=== PATIENT | female | born 1960 | race Caucasian/White ===

== ENCOUNTER 2019-06-25 10:16 | Outpatient (CLI) | payer MEDICARE, MEDICAID, SELFPAY ==
--- NOTE | ~2019-06-25 | XR_ITS ---
XR chest 2V DATE: 06/25/2019 10:52 INDICATION: Shortness of breath. COPD. TECHNIQUE: PA and lateral views COMPARISON: 07/09/2018 2 view chest FINDINGS: There is cardiomegaly. Aortic calcification. Right sided pacemaker with defibrillator/pac emaker lead overlying right ventricular apex. There is patchy consolidation in the left mid and lower lung patterson, new since 07/09/2018. There is new mild left pleural effusion. The remaining lung patterson are clear. No right pleural effusion. No pulmonary vascular congestion or p neumothorax. IMPRESSION: New patchy consolidation in the left mid and lower lung, small left pleural effusion Cardiomegaly Right defibrillator/pacemaker device with lead in right ventricular apex Reviewed, dictated and finalized at location B.
[2019-06-25 10:45] LABS: Basophils Percent Auto 0.4 % (0.2-1.2); Eosinophils Percent Auto 0.1 % (0-4.4); Hematocrit 46.6 % (37.0-47.0); Immature Granulocyte Absolute 0.03 K/mm3 (0.00-0.031); Immature Granulocyte Percent A 0.4 % (0-0.5); Lymphocytes Absolute Auto 2.91 K/mm3 (0.9-3.2); Lymphocytes Percent Auto 34.4 % (18.3-44.2); Mean Corpuscular HGB Conc 32.2 g/dl (32-36); Mean Corpuscular Hemoglobin 30.7 pg (26-34); Mean Corpuscular Volume 95.5 fl (80-100); Mean Platelet Volume 8.5 fl (7.4-10.4); Monocytes Absolute Auto 0.6 K/mm3 (0.1-0.6); Monocytes Percent Auto 6.7 % (2.6-8.5); Neutrophils Absolute Auto 4.9 K/mm3 (1.3-6.7); Nucleated Red Blood Cells Perc 0.2 % (0.0-0.2); Platelet Count Result 378 k/mm3 (150-375); Red Blood Count 4.88 M/mm3 (4.2-5.4); Red Cell Distribution Width 14.3 % (11.5-14.5); White Blood Count 8.5 K/mm3 (4.5-10.0)
[2019-06-25 11:08] LABS: NT Pro B Type Natriuretic Pept 20800 PG/ML (5-100)
== END 2019-06-25 10:17 | disposition home or self-care (01) ==
LOC: ANHLAB 10:27
PROVIDERS: PCP Internal Medicine; Visit Provider Nurse Practitioner Family
DX: R06.02 Shortness of breath (principal); R05 Cough; R60.0 Localized edema; J06.9 Acute upper respiratory infection, unspecified; Z95.0 Presence of cardiac pacemaker
CPT/HCPCS: 36415; 71046; 83880; 85025

== ENCOUNTER 2019-08-04 12:59 | Outpatient (CLI) | payer MEDICARE, MEDICAID, SELFPAY ==
[2019-08-04 13:32] LABS: Blood Urea Nitrogen 13 mg/dL (7-17); Calcium 9.5 mg/dL (8.4-10.2); Carbon Dioxide 38 mmol/L (22-30); Chloride 99 mmol/L (98-107); Estimated Glomerular Filt Rate > 60; Glucose 84 mg/dL (65-105); Potassium 5.1 mmol/L (3.4-5.0); Sodium 136 mmol/L (137-145)
== END 2019-08-04 13:00 | disposition home or self-care (01) ==
LOC: ANHLAB 13:02
PROVIDERS: PCP Internal Medicine; Visit Provider Internal Medicine Cardiovascular Disease
DX: I25.5 Ischemic cardiomyopathy (principal)
CPT/HCPCS: 36415; 80048

== ENCOUNTER 2019-08-14 09:48 | Outpatient (CLI) | payer MEDICARE, MEDICAID, SELFPAY ==
[2019-08-14 10:32] LABS: Blood Urea Nitrogen 16 mg/dL (7-17); Carbon Dioxide 34 mmol/L (22-30); Chloride 98 mmol/L (98-107); Estimated Glomerular Filt Rate > 60; Glucose 123 mg/dL (65-105); Potassium 3.7 mmol/L (3.4-5.0); Sodium 135 mmol/L (137-145)
== END 2019-08-14 09:49 | disposition home or self-care (01) ==
LOC: ANHLAB 09:51
PROVIDERS: PCP Internal Medicine; Visit Provider Internal Medicine Cardiovascular Disease
DX: I25.5 Ischemic cardiomyopathy (principal); I50.22 Chronic systolic (congestive) heart failure
CPT/HCPCS: 36415; 80048

== ENCOUNTER 2019-09-15 15:16 | Outpatient (CLI) | payer MEDICARE, MEDICAID, SELFPAY ==
[2019-09-15 15:59] LABS: Blood Urea Nitrogen 17 mg/dL (7-17); Calcium 10.1 mg/dL (8.4-10.2); Carbon Dioxide 37 mmol/L (22-30); Chloride 85 mmol/L (98-107); Estimated Glomerular Filt Rate > 60; Glucose 100 mg/dL (65-105); Potassium 3.3 mmol/L (3.4-5.0); Sodium 128 mmol/L (137-145)
== END 2019-09-15 15:17 | disposition home or self-care (01) ==
PROVIDERS: PCP Internal Medicine; Visit Provider Internal Medicine Cardiovascular Disease
DX: I50.22 Chronic systolic (congestive) heart failure (principal); I42.9 Cardiomyopathy, unspecified; I25.10 Atherosclerotic heart disease of native coronary artery without angina pectoris
CPT/HCPCS: 36415; 80048

== ENCOUNTER 2019-09-24 09:59 | Inpatient (IN) | payer MEDICARE, MEDICAID, SELFPAY ==
[2019-09-24] VITALS (30 sets, daily range): BP systolic 85–133; BP diastolic 54–110; PULSE 0–76; RESP 14–43; TEMP 36–36.7; O2SAT 82–98; BMI 25.4
--- NOTE | ~2019-09-24 | US_ITS ---
EXAMINATION: US right upper quadrant DATE: 09/25/2019 09:30 INDICATION: Elevated liver function tests TECHNIQUE: Multiple grayscale and Doppler ultrasound images of the abdomen were obtained. COMPARISON: 12/19/2016 FINDINGS: The head, body, and tail of the pancreas are normal. The liver is normal with normal echoge nicity and echotexture. No surface nodularity. Normal hepatopetal flow in the main portal vein. The g allbladder is normal with no abnormal wall thickening, pericholecystic fluid or stones. The normal co mmon bile duct measures 2 mm. There was no sonographic James sign. IMPRESSION: 1. Normal sonographic study of the gallbladder. Reviewed, dictated and finalized at location A.
--- NOTE | ~2019-09-24 | CT_ITS ---
EXAMINATION: CT brain wo con INDICATION: Headache COMPARISON: Dizziness TECHNIQUE: Standard unenhanced head CT. The dose-length product (DLP) was 605.33 mGy-cm. The mA was a djusted according to patient size. Iterative reconstruction technique was employed. FINDINGS: There is no intracranial hemorrhage, acute infarction, or abnormal mass lesion. The ventric les are normal. There is no abnormal mass effect or midline shift. The rodriguez-white matter differentiat ion is normal. The basal cisterns are patent. The orbits are normal. There is mild mucosal thickening of the paranasal sinuses. IMPRESSION: 1. No acute intracranial abnormality. Reviewed, dictated and finalized at location A.
--- NOTE | ~2019-09-24 | XR_ITS ---
EXAMINATION: XR chest 1V INDICATION: Dizziness TECHNIQUE: AP view of the chest is obtained. COMPARISON: 06/25/2019 FINDINGS: Left upper lobe airspace opacity persists but is slightly improved. There is no pleural eff usion or pneumothorax. Stable cardiomegaly is noted. A single lead pacemaker of the right chest wall ends with its lead in expected position. IMPRESSION: 1. Persistent but improved left upper lobe airspace opacity. Follow-up with nonemergent CT of the [address] is recommended to evaluate for underlying mass. Reviewed, dictated and finalized at location A. IMPRESSION: 1. Persistent but improved left upper lobe airspace opacity. Follow-up with non emergent CT of the chest is recommended to evaluate for underlying mass.
--- NOTE | 2019-09-24 10:21 | ED.GENADULT ---
HPI - General Adult General Chief complaint: Recheck/Abnormal Lab/Rx Stated complaint: ORTHOSTATIC IN CARDIOLOGISTS OFFICE Time Seen by Provider: 09/24/19 10:02 Source: RN notes reviewed History of Present Illness HPI narrative: Patient presents emergency department from Dr. Malone's office for orthostatic hypotension. Patient states since the past 5 days she has been having persistent dizziness with syncopal episodes. States that she had gone to the office today for a pacemaker check and is been noted to be orthostatic in the office and sent to the ER for further evaluation. The patient does state that she had been having swelling in her legs recently and her Lasix has been increased approximately 2 weeks ago. She denies any fevers or chills chest pain shortness of breath abdominal pain or any other symptoms Related Data Home Medications Medication Instructions Recorded Confirmed aspirin 81 mg tablet,delayed 81 mg PO DAILY 06/20/19 06/24/19 release atorvastatin 40 mg tablet 40 mg PO DAILY 06/20/19 06/24/19 carvedilol 25 mg tablet 25 mg PO DAILY 06/20/19 06/24/19 furosemide 40 mg tablet 40 mg PO QAM 06/20/19 06/24/19 nitroglycerin 0.4 mg sublingual 0.4 mg SUBLINGUAL Q5M 06/20/19 06/24/19 tablet albuterol sulfate 90 mcg/actuation 1 puff INHALATION Q4H PRN 06/24/19 06/24/19 aerosol inhaler clopidogrel [Plavix] 75 mg PO DAILY 09/24/19 potassium chloride 10 meq PO DAILY 09/24/19 Allergies Allergy/AdvReac Type Severity Reaction Status Date / Time valsartan Allergy Unknown Unknown Verified 09/24/19 10:17 Review of Systems Review of Systems: Narrative: Gen.: Denies fevers or chills Eyes: Denies eye pain or visual change ENT: Denies congestion Respiratory: Denies shortness of breath or cough CV: Denies chest pain or palpitations, reports syncope GI: Denies abdominal pain nausea, emesis or diarrhea denies burning, urgency, frequency or hematuria Musculoskeletal: Denies back pain or muscle pain Neuro: Denies numbness, tingling, weakness or focal weakness, reports dizziness Skin: Denies rash Except as documented, all other systems reviewed and negative PMFSH Past Medical History Medical History Bronchitis Cardiomyopathy Congestive heart failure COPD (chronic obstructive pulmonary disease) Coronary artery disease Hypertension Lung nodule Lymphadenopathy Mediastinal (thymic) large B-cell lymphoma Rhinitis Sleep apnea Tobacco abuse Social History Social History Years smoked: 39 Smoking status: Current every day smoker Tobacco type: cigarettes Second hand tobacco smoke exposure: No Smoking end date: 03/09/19 Alcohol intake: never Exam Narrative: Exam Narrative: APPEARANCE: No acute distress, nontoxic, resting in bed EYES: EOMI, Marci HEENT: Normocephalic, atraumatic, OMM RESPIRATORY: No respiratory distress Clear to auscultation bilaterally with no rhonchi wheezing or rales. CARDIOVASCULAR: Regular rate and rhythm without murmurs rubs or gallops. ABDOMINAL: Soft, nontender, nondistended, no rebound or guarding MUSCULOSKELETAl: Moves all extremities. No clubbing, cyanosis or edema. NEURO: Awake and alert. Following commands, speech normal, no focal deficits SKIN:: Warm, dry. No rashes lesions or abrasions PSYCHIATRIC: Normal affect/mood, Course Course Emergency Course: Discussed with VOCATIONAL TRAINING INSTRUCTOR and Maycol Malone presentation work-up agrees with consult at this time Discussed Dr. Cooley presentation work-up. Agrees with admission at this time Discussed with patient and family results of workup and diagnosis. Discussed need for admission. Patient and family understand and agree to current treatment plan Vital Signs Vital signs: Vital Signs Pulse Rate 69 09/24/19 10:12 Respiratory Rate 16 09/24/19 10:12 Blood Pressure 124/80 09/24/19 10:12 Pulse Oximetry 94 09/24/19 10
--- NOTE | 2019-09-24 10:25 | ECG_ITS ---
Measurements Intervals [place] Rate: 69 P: 32 TX: 182 QRS: 134 QRSD: 137 T: 70 QT: 476 QTc: 513 Interpretive Statements ATRIAL SENSE- ELECTRONIC VENTRICULAR PACEMAKER NO FURTHER INTERPRETATION IS POSSIBLE ATYPICAL ECG Electronically Signed On 09-24-2019 14:28:25 CDT by Miguel A Alvarado D.O.
[2019-09-24] MEDS: SODIUM CHLORIDE 0.9% IV 1,000 ML 999 ML IV CONT (10:26)
[2019-09-24 10:32] LABS: Basophils Percent Auto 0.6 % (0.2-1.2); Eosinophils Percent Auto 0.3 % (0-4.4); Hematocrit 53.4 % (37.0-47.0); Hemoglobin 18.1 g/dL (12.0-15.0); Immature Granulocyte Absolute 0.02 K/mm3 (0.00-0.031); Immature Granulocyte Percent A 0.3 % (0-0.5); Lymphocytes Absolute Auto 2.28 K/mm3 (0.9-3.2); Mean Corpuscular HGB Conc 33.9 g/dl (32-36); Mean Corpuscular Hemoglobin 30.3 pg (26-34); Mean Corpuscular Volume 89.3 fl (80-100); Monocytes Absolute Auto 0.8 K/mm3 (0.1-0.6); Monocytes Percent Auto 12.6 % (2.6-8.5); Neutrophils Absolute Auto 3.2 K/mm3 (1.3-6.7); Neutrophils Percent Auto 50.2 % (45.5-73.1); Platelet Count Result 222 k/mm3 (150-375); Red Blood Count 5.98 M/mm3 (4.2-5.4); Red Cell Distribution Width 15.4 % (11.5-14.5); White Blood Count 6.3 K/mm3 (4.5-10.0)
[2019-09-24 10:42] LABS: INR 1.1; Partial Thromboplastin Time 25.8 SECONDS (22.3-36.8); Prothrombin Time 13.8 Seconds (11.1-14.7)
[2019-09-24 10:49] LABS: Alanine Aminotransferase 29 U/L (4-35); Albumin Level 4.4 g/dL (3.5-5.1); Alkaline Phosphatase 168 U/L (38-126); Aspartate Amino Transferase 58 U/L (14-36); Bilirubin,Total 1.7 mg/dL (0.2-1.3); Blood Urea Nitrogen 18 mg/dL (7-17); Calcium 9.9 mg/dL (8.4-10.2); Carbon Dioxide > 40 mmol/L (22-30); Chloride 81 mmol/L (98-107); Estimated CRCL calculation 74 ml/min; Estimated Glomerular Filt Rate > 60; Glucose 122 mg/dL (65-105); Potassium 2.4 mmol/L (3.4-5.0); Sodium 127 mmol/L (137-145)
[2019-09-24 10:59] LABS: Troponin I 0.157 ng/mL (0.000-0.034)
[2019-09-24 11:08] LABS: Magnesium 1.5 mg/dL (1.6-2.3)
[2019-09-24] MEDS: POTASSIUM CHLORIDE 20 MEQ TABLET 40 MEQ PO (11:36)
[2019-09-24] MEDS: ASPIRIN 81 MG CHEWABLE TABLET 324 MG PO (12:04)
[2019-09-24] MEDS: MAGNESIUM SULF 2 GM/WATER 50ML 2 GM/50 ML BAG IVPB (12:05)
--- NOTE | 2019-09-24 13:41 | ADMGEN ---
This patient, Mar Martinez, was admitted to IMU Room 200-01 at 1311 on 09/24/2019. Patient/family oriented to hospital policies and general routines including ID bracelet, bed and alarms, visiting hours, pain management, procedures, bathroom and other care routines, personal items, smoking policy, room service/diet, and visiting hours. Valuables list has been completed. Information on how to activate the Rapid Response Team has been discussed. Patient/Family are encouraged to report perceived risks to care and to ask questions if they do not understand what they are told or what they should do.
[2019-09-24 14:05] LABS: Troponin I 0.133 ng/mL (0.000-0.034)
--- NOTE | 2019-09-24 15:30 | PM.IMHP ---
H&P: HPI History of Present Illness Chief complaint: Recurrent syncopal episodes. Narrative: Mar Martinez is a 59-year-old female smoker with a complicated medical history to include coronary artery disease with history of [place], ischemic cardiomyopathy with severe left ventricular dysfunction and ejection fraction of 20% status post defibrillator insertion, peripheral vascular disease, hypertension, hyperlipidemia, and COPD who presented to the emergency department earlier this morning from Dr. Chaudhry's office for evaluation of recurrent syncopal episodes over the past 5 days. Several weeks ago she noticed an increase in shortness of breath, edema, and weight gain for which she had an increase in her diuretic therapy. She responded well to the diuretics and has near resolution of her lower extremity edema. Unfortunately over the past 5 days or so, she has began to feel dizzy with position changes, has had frequent instances of near-syncope, and reports at least 2 syncopal episodes this week. She was seen in Dr. Chaudhry's office today and had her defibrillator interrogated, which that was functioning normally. She was found to have orthostatic hypotension (systolic blood pressure dropped from 80 to 60) and was sent to the emergency department for admission. At the time my evaluation she is tired but has no other complaints. She was just up to the bedside commode and denies feeling dizzy with that. She also mentions having some nausea the last several days and decreased appetite, but no vomiting. Regarding the syncopal episodes, she denies any injury with those. She denies chest pain, pleuritic pain, and current shortness of breath. Review of Systems Review of Systems: Narrative: Twelve systems were reviewed with pertinent positives and negatives as per HPI. No fever, chills, or sweats. She denies headache. No chest pain or pleuritic pain. She denies orthopnea and PND. Except as documented, all other systems were reviewed and are negative. [facility] Past Medical History Medical History (Updated 09/24/19 @ 22:41 by Petrona Guerrero PA-C) Cerebrovascular accident No residual deficits. Chronic obstructive pulmonary disease Congestive heart failure Coronary artery disease With history of myocardial infarction. Patient has several stents in place. Hypertension Ischemic cardiomyopathy EF as low as 10 to 15% in September 2012. Status post defibrillator insertion. Lung nodule Left upper lobe opacity noted on imaging. Obstructive sleep apnea Untreated. Peripheral vascular disease With history of stents to the lower extremity. Right leg DVT Tobacco abuse Surgical History Surgical History (Updated 09/24/19 @ 16:05 by Petrona Guerrero PA-C) History of appendectomy History of carpal tunnel release History of coronary angioplasty with insertion of stent History of insertion of stent into coronary artery bypass graft History of tonsillectomy and adenoidectomy History of vascular surgery Right iliac stent. Presence of combination internal cardiac defibrillator (ICD) and pacemaker (~2012) Family History Family History Mother Diabetes mellitus, Onset Age: 66 Family history of coronary artery disease, Onset Age: 66 Family history of throat cancer, Onset Age: 66 Father Acute myocardial infarction, Onset Age: 48 Sibling Acute myocardial infarction, Onset Age: 39 Family history of chronic obstructive pulmonary disease Family history of malignant neoplasm of ovary Family history of seizure disorder Other Family history of cardiovascular disease Hypertension Social History Social History (Updated 09/24/19 @ 22:39 by Petrona Guerrero PA-C) Social History: Surrogate decision maker: Ernst Martinez, . Code status: Full code. Years smoked: 39 Smoking status: Current every day smoker Tobacco type: cigarettes Second hand tobacc
--- NOTE | 2019-09-24 15:40 | PM.CNCAR ---
Assessment and Plan Assessment and plan (1) Orthostatic hypotension: Code(s): I95.1 - Orthostatic hypotension Status: Acute Assessment and Plan: Secondary to intravascular volume depletion and diuretic therapy. Patient had more recently began to follow our recommendations with sodium restriction and in addition to escalating diuretic therapy resulted in orthostatic hypotension with near-syncope and syncope. Hold diuretic therapy. Push oral fluids. Will need to determine lower dose of diuretic therapy likely to be given as outpatient. Explained the delicate balance with regards to maintaining euvolemic status and avoiding symptomatic orthostatic hypotension/intravascular volume depletion. (2) Acute hypokalemia: Code(s): E87.6 - Hypokalemia Status: Acute Assessment and Plan: Secondary to diuretic therapy, decreased oral intake for the past week. Supplement to keep around 4.0. Continue telemetry. Check magnesium level. (3) Acute hyponatremia: Code(s): E87.1 - Hypo-osmolality and hyponatremia Status: Acute Assessment and Plan: Most likely secondary to diuretic therapy. Hold all diuretics at this time. (4) COPD with asthma: Code(s): J44.9 - Chronic obstructive pulmonary disease, unspecified Status: Acute Assessment and Plan: Stable. Per primary service. (5) Ischemic cardiomyopathy: Code(s): I25.5 - Ischemic cardiomyopathy Status: Acute Assessment and Plan: Compensated. Severe LV dysfunction. Has not been able to tolerate optimal medical therapy in the past due to hypotension. (6) Elevated troponin: Code(s): R79.89 - Other specified abnormal findings of blood chemistry Status: Acute Assessment and Plan: Most likely demand ischemia due to hypotension/intravascular volume depletion. No anginal symptoms. Most likely type 2 infarct not acute coronary syndrome. (7) CAD (coronary artery disease): Code(s): I25.10 - Atherosclerotic heart disease of [place] coronary artery without angina pectoris Status: Acute Assessment and Plan: No anginal symptoms. Continue dual antiplatelet therapy, statin. (8) ICD (implantable cardioverter-defibrillator) in place: Code(s): Z95.810 - Presence of automatic (implantable) cardiac defibrillator Status: Acute Assessment and Plan: Normal device function. No acute issues. History of Present Illness History of Present Illness Consult date/time: Date of service: 09/24/19 15:40 This is a cardiology consultation at the request of Dr. Purcell of the [facility] for our opinion regarding h/o congestive heart failure presenting with orthostatic hypotension and recent syncope. Requesting physician: Shad Purcell DO Consult reason: Other (Orthostatic hypotension, syncope) Reason For Visit: hypokalemia,hypomagnesia,hyponatremia,orthostatic Narrative: Patient is a very pleasant 59-year-old female with a past medical history significant for COPD, CAD, P 80 status post percutaneous intervention and stent implantation, ischemic cardiomyopathy with severe LV dysfunction EF 20%, ICD, and dyslipidemia who was evaluated in our office for ICD check due to recurrence recent syncope. Patient had recent weight gain worsening edema shortness of breath secondary to decompensated heart failure requiring escalating doses of diuretic therapy. Patient was taking Lasix 40 mg in the morning 20 mg in the afternoon in addition to a the addition of metolazone 2.5 mg twice weekly. Potassium is mildly low recently was started on potassium chloride 10 mEq daily. Patient has a history of hypotension precluding use of optimal medical management for her cardiomyopathy however blood pressure been quite stable with 120-130 systolic intolerant diuretic therapy. She was achieving significant weight loss with resolution of her edema and shortness of breath. Approximately
[2019-09-24 16:43] LABS: Blood Urea Nitrogen 18 mg/dL (7-17); Calcium 9.2 mg/dL (8.4-10.2); Carbon Dioxide 34 mmol/L (22-30); Chloride 87 mmol/L (98-107); Estimated CRCL calculation 74 ml/min; Estimated Glomerular Filt Rate > 60; Glucose 162 mg/dL (65-105); Potassium 3.1 mmol/L (3.4-5.0); Sodium 128 mmol/L (137-145)
[2019-09-24 16:45] LABS: Alveolar/Arterial O2 Gradient 19.1 mmHg; Base Excess ABG 8.8 mEq/l (+/-2.0); Carboxyhemoglobin 2.8 % THb (0-2.0); Fractional Inspired Oxygen 21 %; HCO3 ABG 33.8 mEq/l (22.0-26.0); Methemoglobin ABG 0.5 %THb (0-1.5); Oxygen Content ABG 23.1 %vol (16.0-22.0); Oxygen Saturation ABG 95.8 % (95.0-100.0); Oxyhemoglobin 92.5 % THb (90.0-100.0); PCO2 ABG 46.3 mmHg (35.0-45.0); PO2 ABG 75.2 mmHg (80.0-100.0); PO2 FiO2 Ratio Arterial Blood 3.58 %; Reduced Hemoglobin 4.2 %THb (0-5.0); Total Hemoglobin 17.8 g/dL (12.0-18.0); pH ABG 7.481 (7.350-7.450)
[2019-09-24 16:48] LABS: Device ROOM AIR; Modified Allen's Test Pass; Site Drawn RIGHT RADIAL
[2019-09-25] VITALS (23 sets, daily range): BP systolic 76–114; BP diastolic 40–82; PULSE 60–80; RESP 16–20; TEMP 35.9–36.6; O2SAT 96–99
[2019-09-25 00:06] LABS: Hepatitis B Surface Antigen Negative (Negative)
[2019-09-25 00:11] LABS: HAV RESULT Negative (Negative); Hepatitis B Core IgM Result Negative (Negative)
[2019-09-25 00:23] LABS: Hepatitis C Virus Antibody Negative (Negative)
[2019-09-25 05:05] LABS: Basophils Percent Auto 0.7 % (0.2-1.2); Eosinophils Percent Auto 0.7 % (0-4.4); Hematocrit 51.3 % (37.0-47.0); Hemoglobin 16.9 g/dL (12.0-15.0); Immature Granulocyte Absolute 0.01 K/mm3 (0.00-0.031); Immature Granulocyte Percent A 0.2 % (0-0.5); Lymphocytes Absolute Auto 2.26 K/mm3 (0.9-3.2); Lymphocytes Percent Auto 49.2 % (18.3-44.2); Mean Corpuscular HGB Conc 32.9 g/dl (32-36); Mean Corpuscular Hemoglobin 29.9 pg (26-34); Mean Corpuscular Volume 90.8 fl (80-100); Mean Platelet Volume 10.4 fl (7.4-10.4); Monocytes Absolute Auto 0.6 K/mm3 (0.1-0.6); Monocytes Percent Auto 13.5 % (2.6-8.5); Neutrophils Absolute Auto 1.6 K/mm3 (1.3-6.7); Neutrophils Percent Auto 35.7 % (45.5-73.1); Platelet Count Result 230 k/mm3 (150-375); Red Blood Count 5.65 M/mm3 (4.2-5.4); Red Cell Distribution Width 15.1 % (11.5-14.5); White Blood Count 4.6 K/mm3 (4.5-10.0)
[2019-09-25 05:27] LABS: Alanine Aminotransferase 24 U/L (4-35); Albumin Level 3.7 g/dL (3.5-5.1); Alkaline Phosphatase 122 U/L (38-126); Aspartate Amino Transferase 48 U/L (14-36); Bilirubin,Total 0.8 mg/dL (0.2-1.3)
[2019-09-25 05:39] LABS: Blood Urea Nitrogen 17 mg/dL (7-17); Calcium 8.9 mg/dL (8.4-10.2); Carbon Dioxide 36 mmol/L (22-30); Chloride 87 mmol/L (98-107); Estimated CRCL calculation 85 ml/min; Estimated Glomerular Filt Rate > 60; Glucose 86 mg/dL (65-105); Potassium 2.7 mmol/L (3.4-5.0); Sodium 129 mmol/L (137-145)
[2019-09-25 05:57] LABS: Cortisol Random 9.83 ug/dL
[2019-09-25 06:22] LABS: Add Urine Microscopic? YES; Appearance Urine Clear (Clear); Bilirubin Urine Negative (Negative); Blood Urine Negative (Negative); Color Urine Yellow (Yellow); Glucose Urine UA Negative (Negative); Ketones Urine Negative (Negative); Leukocyte Esterase Ur Negative LEU/UL (Negative); Nitrate Urine Negative (Negative); Protein Urine Negative (Negative); RBC Urine 0-2 /hpf (0-2); Specific Grav Ur 1.011 (1.001-1.035); Squamous Epithelial Cell Urine Many /hpf (Few)
[2019-09-25 06:26] LABS: Sodium Urine Random 67 meq/L
[2019-09-25 06:28] LABS: Creatinine Urine 59.1 mg/dL
[2019-09-25] MEDS: POTASSIUM CHLORIDE 20 MEQ TABLET 40 MEQ PO (06:39)
--- NOTE | 2019-09-25 08:40 | P.PNIM_ITS ---
Progress Note: A&P Assessment and Plan (1) Recurrent syncope: Code(s): R55 - Syncope and collapse Status: Acute Assessment and Plan: Secondary to orthostatic hypotension. * Diuretics are on hold at this point. * Cardiology following and appreciate recommendations/management * Given her severe cardiomyopathy, encouraged p.o. fluid intake. * Monitor orthostatic vital signs Q shift. * Fall precautions. (2) Elevated troponin: Code(s): R79.89 - Other specified abnormal findings of blood chemistry Status: Acute Assessment and Plan: * She is not having any chest pain, and likely this is demand ischemia from hypo tension. (3) Hypomagnesemia: Code(s): E83.42 - Hypomagnesemia Status: Acute Assessment and Plan: * Magnesium replaced and was 2.0 yesterday. * Will be replaced as needed and monitored closely. (4) Hyponatremia: Code(s): E87.1 - Hypo-osmolality and hyponatremia Status: Acute Assessment and Plan: Na 129 today, slight improvement. Due to aggressive diuresis, which is currently being held. * P.o. fluid intake encouraged. * Will continue to monitor closely. (5) Hypokalemia: Code(s): E87.6 - Hypokalemia Status: Acute Assessment and Plan: K 2.7 this morning; replaced by retail pharmacy manager * BMP after IV KCl given today * Potassium will be replaced as needed and monitored. (6) Polycythemia: Code(s): D75.1 - Secondary polycythemia Status: Acute Assessment and Plan: Improvement overnight. Presumably hemoconcentration from dehydration. * Will repeat CBC in a.m. (7) Elevated LFTs: Code(s): R79.89 - Other specified abnormal findings of blood chemistry Status: Acute Assessment and Plan: AST improved overnight. Possibly mild shock liver from hypotension. She is clinically compensated with regards were congestive heart failure making passive congestion unlikely. * Repeat LFTs in a.m. and monitor. * RUQ US to be done this morning (8) Ischemic cardiomyopathy: Code(s): I25.5 - Ischemic cardiomyopathy Status: Acute Assessment and Plan: * With an ejection fraction as low as 20%, status post defibrillator. * Cardiology following (9) Orthostatic hypotension: Code(s): I95.1 - Orthostatic hypotension Status: Acute Assessment and Plan: * Secondary to over-diuresis and dehydration. * Initiate fall precautions and monitor orthostatic vital signs q. shift. (10) Lung nodule: Code(s): R91.1 - Solitary pulmonary nodule Status: Acute Assessment and Plan: This is been noted on previous imaging, and fact this stay shows some improvement. * Will defer further workup to her primary care provider, a chest CT recommended. * Patient made aware and will follow up with PCP (11) Tobacco abuse: Code(s): Z72.0 - Tobacco use Status: Acute Assessment and Plan: * Given her multitude of health prob
--- NOTE | 2019-09-25 08:40 | PM.IMPN ---
Progress Note: A&P Assessment and Plan (1) Recurrent syncope: Code(s): R55 - Syncope and collapse Status: Acute Assessment and Plan: Secondary to orthostatic hypotension. Diuretics are on hold at this point. Cardiology following and appreciate recommendations/management Given her severe cardiomyopathy, encouraged p.o. fluid intake. Monitor orthostatic vital signs Q shift. Fall precautions. (2) Elevated troponin: Code(s): R79.89 - Other specified abnormal findings of blood chemistry Status: Acute Assessment and Plan: She is not having any chest pain, and likely this is demand ischemia from hypotension. (3) Hypomagnesemia: Code(s): E83.42 - Hypomagnesemia Status: Acute Assessment and Plan: Magnesium replaced and was 2.0 yesterday. Will be replaced as needed and monitored closely. (4) Hyponatremia: Code(s): E87.1 - Hypo-osmolality and hyponatremia Status: Acute Assessment and Plan: Na 129 today, slight improvement. Due to aggressive diuresis, which is currently being held. P.o. fluid intake encouraged. Will continue to monitor closely. (5) Hypokalemia: Code(s): E87.6 - Hypokalemia Status: Acute Assessment and Plan: K 2.7 this morning; replaced by hearing aid assembly supervisor BMP after IV KCl given today Potassium will be replaced as needed and monitored. (6) Polycythemia: Code(s): D75.1 - Secondary polycythemia Status: Acute Assessment and Plan: Improvement overnight. Presumably hemoconcentration from dehydration. Will repeat CBC in a.m. (7) Elevated LFTs: Code(s): R79.89 - Other specified abnormal findings of blood chemistry Status: Acute Assessment and Plan: AST improved overnight. Possibly mild shock liver from hypotension. She is clinically compensated with regards were congestive heart failure making passive congestion unlikely. Repeat LFTs in a.m. and monitor. RUQ US to be done this morning (8) Ischemic cardiomyopathy: Code(s): I25.5 - Ischemic cardiomyopathy Status: Acute Assessment and Plan: With an ejection fraction as low as 20%, status post defibrillator. Cardiology following (9) Orthostatic hypotension: Code(s): I95.1 - Orthostatic hypotension Status: Acute Assessment and Plan: Secondary to over-diuresis and dehydration. Initiate fall precautions and monitor orthostatic vital signs q. shift. (10) Lung nodule: Code(s): R91.1 - Solitary pulmonary nodule Status: Acute Assessment and Plan: This is been noted on previous imaging, and fact this stay shows some improvement. Will defer further workup to her primary care provider, a chest CT recommended. Patient made aware and will follow up with PCP (11) Tobacco abuse: Code(s): Z72.0 - Tobacco use Status: Acute Assessment and Plan: Given her multitude of health problems, is imperative that she stop smoking. It does not sound as though she is motivated to do so, however. Subjective Date/time seen: 09/25/19 08:40 Interval history: Patient is a 59 yo F with a complicated medical history to include coronary artery disease with history of [place], ischemic cardiomyopathy with severe left ventricular dysfunction and ejection fraction of 20% status post defibrillator insertion, peripheral v
[2019-09-25 12:07] LABS: Blood Urea Nitrogen 14 mg/dL (7-17); Calcium 9.5 mg/dL (8.4-10.2); Carbon Dioxide 38 mmol/L (22-30); Chloride 88 mmol/L (98-107); Estimated CRCL calculation 101 ml/min; Estimated Glomerular Filt Rate > 60; Glucose 111 mg/dL (65-105); Magnesium 1.8 mg/dL (1.6-2.3); Potassium 4.6 mmol/L (3.4-5.0); Sodium 130 mmol/L (137-145)
[2019-09-25] MEDS: POTASSIUM CHLORIDE 20 MEQ TABLET.ER 40 MEQ PO (12:12)
[2019-09-25] MEDS: carvediloL 12.5 MG TABLET PO (12:12)
[2019-09-25] MEDS: MONTELUKAST SODIUM 10 MG TABLET PO (12:13)
[2019-09-25] MEDS: ATORVASTATIN 40 MG TABLET PO (12:13)
[2019-09-25] MEDS: CLOPIDOGREL BISULFATE 75 MG TABLET PO (12:13)
[2019-09-25] MEDS: ASPIRIN 81 MG ENTERIC TABLET PO (12:13)
--- NOTE | 2019-09-25 15:56 | PM.PNCARD ---
Progress Note: A&P Assessment and Plan (1) Orthostatic hypotension: Code(s): I95.1 - Orthostatic hypotension Status: Acute Assessment and Plan: Remains significantly orthostatic. Reduce carvedilol to 6.25 mg twice daily due to persistent relative hypotension and orthostasis. Unable to tolerate additional guideline directed medical therapy for her cardiomyopathy in addition to diuretics at this time. She will eventually require re-initiation diuretic therapy as an outpatient. Will give additional 250 cc normal saline at 75 mL/hour to cautiously hydrate further. Monitor volume status. Secondary to intravascular volume depletion and diuretic therapy. Patient had more recently began to follow our recommendations with sodium restriction and in addition to escalating diuretic therapy resulted in orthostatic hypotension with near-syncope and syncope. (2) Acute hypokalemia: Code(s): E87.6 - Hypokalemia Status: Acute Assessment and Plan: Potassium 2.7 this morning repeat after 11:00 a.m. 4.6 most likely lab error as she received approximately 80 mEq potassium in the interval. review potassium level now. Discontinue potassium supplementation if remains in the normal range, otherwise will supplement as warranted based on labs when they return. Secondary to diuretic therapy, decreased oral intake for the past week. Supplement to keep around 4.0. Continue telemetry. (3) Acute hyponatremia: Code(s): E87.1 - Hypo-osmolality and hyponatremia Status: Acute Assessment and Plan: Most likely secondary to diuretic therapy. Hold all diuretics at this time. Improving. (4) COPD with asthma: Code(s): J44.9 - Chronic obstructive pulmonary disease, unspecified Status: Acute Assessment and Plan: Stable. Per primary service. (5) Ischemic cardiomyopathy: Code(s): I25.5 - Ischemic cardiomyopathy Status: Acute Assessment and Plan: Compensated. Severe LV dysfunction. Has not been able to tolerate optimal medical therapy in the past due to hypotension. (6) Elevated troponin: Code(s): R79.89 - Other specified abnormal findings of blood chemistry Status: Acute Assessment and Plan: Most likely demand ischemia due to hypotension/intravascular volume depletion. No anginal symptoms. Most likely type 2 infarct not acute coronary syndrome. (7) CAD (coronary artery disease): Code(s): I25.10 - Atherosclerotic heart disease of [place] coronary artery without angina pectoris Status: Acute Assessment and Plan: No anginal symptoms. Continue dual antiplatelet therapy, statin. (8) ICD (implantable cardioverter-defibrillator) in place: Code(s): Z95.810 - Presence of automatic (implantable) cardiac defibrillator Status: Acute Assessment and Plan: Normal device function. No acute issues. Subjective Date/time seen: Date of service: 09/25/19 15:56 Follow-up for orthostatic hypotension, hypokalemia, history of CHF and severe LV dysfunction Interval history: she feels okay today, better. Still feels dehydrated, little dizzy with ambulation but quite orthostatic this morning. denies shortness of breath, chest pain or palpitations. Review of Systems Review of Systems: All systems reviewed & are unremarkable except as noted in HPI and below Constitutional: Constitutional: Reports as per HPI, Reports no additional constitutional complaints, Denies excessive sweating, Reports fatigue and Reports weakness Eyes: Eyes: Reports as per HPI and Reports no additional eye complaints ENT: Reports system reviewed and no additional complaints, except as documented and Reports as per HPI Cardiovascular: Cardiovascular: Reports as per HPI, Reports no additional cardiovascular complaints, Denies chest pain, Denies leg edema, Reports lightheadedness, Denies palpitations, Denies dyspnea and Denies dyspnea on exertion Respir
[2019-09-25 16:39] LABS: Potassium 4.1 mmol/L (3.4-5.0)
[2019-09-25] MEDS: SODIUM CHLORIDE 0.9% IV 250 ML 75 ML IV CONT (17:41)
[2019-09-25] MEDS: carvediloL 6.25 MG TABLET PO (20:44)
[2019-09-26] VITALS (13 sets, daily range): BP systolic 91–125; BP diastolic 46–89; PULSE 60–87; RESP 16; TEMP 36.1–36.3; O2SAT 99
[2019-09-26 05:04] LABS: Basophils Percent Auto 0.5 % (0.2-1.2); Eosinophils Percent Auto 0.5 % (0-4.4); Hematocrit 50.2 % (37.0-47.0); Hemoglobin 16.2 g/dL (12.0-15.0); Immature Granulocyte Absolute 0.01 K/mm3 (0.00-0.031); Immature Granulocyte Percent A 0.2 % (0-0.5); Lymphocytes Absolute Auto 2.46 K/mm3 (0.9-3.2); Lymphocytes Percent Auto 37.3 % (18.3-44.2); Mean Corpuscular HGB Conc 32.3 g/dl (32-36); Mean Corpuscular Hemoglobin 29.8 pg (26-34); Mean Corpuscular Volume 92.4 fl (80-100); Mean Platelet Volume 10.2 fl (7.4-10.4); Monocytes Absolute Auto 0.7 K/mm3 (0.1-0.6); Monocytes Percent Auto 11.2 % (2.6-8.5); Neutrophils Absolute Auto 3.3 K/mm3 (1.3-6.7); Neutrophils Percent Auto 50.3 % (45.5-73.1); Platelet Count Result 205 k/mm3 (150-375); Red Blood Count 5.43 M/mm3 (4.2-5.4); Red Cell Distribution Width 15.2 % (11.5-14.5); White Blood Count 6.6 K/mm3 (4.5-10.0)
[2019-09-26 06:44] LABS: Blood Urea Nitrogen 14 mg/dL (7-17); Calcium 9.2 mg/dL (8.4-10.2); Carbon Dioxide 30 mmol/L (22-30); Chloride 91 mmol/L (98-107); Estimated CRCL calculation 122 ml/min; Estimated Glomerular Filt Rate > 60; Glucose 96 mg/dL (65-105); Magnesium 1.6 mg/dL (1.6-2.3); Potassium 4.2 mmol/L (3.4-5.0); Sodium 127 mmol/L (137-145)
--- NOTE | 2019-09-26 07:57 | P.PNIM_ITS ---
Progress Note: A&P Assessment and Plan (1) Recurrent syncope: Code(s): R55 - Syncope and collapse Status: Acute Assessment and Plan: Secondary to orthostatic hypotension. Cardiology following and appreciate rec ommendations/management * Diuretics are on hold at this point. * Given her severe cardiomyopathy, encouraged p.o. fluid intake. * Monitor orthostatic vital signs Q shift. * Fall precautions. (2) Orthostatic hypotension: Code(s): I95.1 - Orthostatic hypotension Status: Acute Assessment and Plan: * Secondary to over-diuresis and dehydration. * Initiate fall precautions and monitor orthostatic vital signs q. shift. (3) Ischemic cardiomyopathy: Code(s): I25.5 - Ischemic cardiomyopathy Status: Acute Assessment and Plan: * With an ejection fraction as low as 20%, status post defibrillator. * Cardiology following (4) Hypomagnesemia: Code(s): E83.42 - Hypomagnesemia Status: Acute Assessment and Plan: Mag 1.6 this morning * Will be replaced as needed and monitored closely. (5) Hyponatremia: Code(s): E87.1 - Hypo-osmolality and hyponatremia Status: Acute Assessment and Plan: Na 127 today, down, but relatively stable. Due to aggressive diuresis, which is currently being held. * P.o. fluid intake encouraged. * Will continue to monitor closely. (6) Hypokalemia: Code(s): E87.6 - Hypokalemia Status: Acute Assessment and Plan: K 4.2 this morning; improved * BMP daily if patient stays overnight * Potassium will be replaced as needed and monitored. (7) Polycythemia: Code(s): D75.1 - Secondary polycythemia Status: Acute Assessment and Plan: Improvement overnight. Presumably hemoconcentration from dehydration. * Will repeat CBC in a.m. should patient stay overnight. CBC as outpatient if pa tient d/c (8) Elevated LFTs: Code(s): R79.89 - Other specified abnormal findings of blood chemistry Status: Acute Assessment and Plan: Possibly mild shock liver from hypotension. Hepatic panel negative. RUQ US negative. She is clinically compensated with regards were congestive heart failure making passive congestion unlikely. * OP follow up with PCP (9) Elevated troponin: Code(s): R79.89 - Other specified abnormal findings of blood chemistry Status: Acute Assessment and Plan: * She is not having any chest pain, and likely this is demand ischemia from hypotension. (10) COPD with asthma: Code(s): J44.9 - Chronic obstructive pulmonary disease, unspecified Status: Acute Assessment and Plan: No acute issues. Patient's respiratory status has been unchanged. Faint wheezing noted on exam * Continue home medication regimen * Monitor for change in respiratory status (11) Lung nodule: Code(s): R91.1 - Solitary pulmonary nodule Status: Acute Assessment and Plan: CHUCKIE airsace opacity noted on CXR. This is been noted on
--- NOTE | 2019-09-26 07:57 | PM.IMPN ---
Progress Note: A&P Assessment and Plan (1) Recurrent syncope: Code(s): R55 - Syncope and collapse Status: Acute Assessment and Plan: Secondary to orthostatic hypotension. Cardiology following and appreciate recommendations/management Diuretics are on hold at this point. Given her severe cardiomyopathy, encouraged p.o. fluid intake. Monitor orthostatic vital signs Q shift. Fall precautions. (2) Orthostatic hypotension: Code(s): I95.1 - Orthostatic hypotension Status: Acute Assessment and Plan: Secondary to over-diuresis and dehydration. Initiate fall precautions and monitor orthostatic vital signs q. shift. (3) Ischemic cardiomyopathy: Code(s): I25.5 - Ischemic cardiomyopathy Status: Acute Assessment and Plan: With an ejection fraction as low as 20%, status post defibrillator. Cardiology following (4) Hypomagnesemia: Code(s): E83.42 - Hypomagnesemia Status: Acute Assessment and Plan: Mag 1.6 this morning Will be replaced as needed and monitored closely. (5) Hyponatremia: Code(s): E87.1 - Hypo-osmolality and hyponatremia Status: Acute Assessment and Plan: Na 127 today, down, but relatively stable. Due to aggressive diuresis, which is currently being held. P.o. fluid intake encouraged. Will continue to monitor closely. (6) Hypokalemia: Code(s): E87.6 - Hypokalemia Status: Acute Assessment and Plan: K 4.2 this morning; improved BMP daily if patient stays overnight Potassium will be replaced as needed and monitored. (7) Polycythemia: Code(s): D75.1 - Secondary polycythemia Status: Acute Assessment and Plan: Improvement overnight. Presumably hemoconcentration from dehydration. Will repeat CBC in a.m. should patient stay overnight. CBC as outpatient if patient d/c (8) Elevated LFTs: Code(s): R79.89 - Other specified abnormal findings of blood chemistry Status: Acute Assessment and Plan: Possibly mild shock liver from hypotension. Hepatic panel negative. RUQ US negative. She is clinically compensated with regards were congestive heart failure making passive congestion unlikely. OP follow up with PCP (9) Elevated troponin: Code(s): R79.89 - Other specified abnormal findings of blood chemistry Status: Acute Assessment and Plan: She is not having any chest pain, and likely this is demand ischemia from hypotension. (10) COPD with asthma: Code(s): J44.9 - Chronic obstructive pulmonary disease, unspecified Status: Acute Assessment and Plan: No acute issues. Patient's respiratory status has been unchanged. Faint wheezing noted on exam Continue home medication regimen Monitor for change in respiratory status (11) Lung nodule: Code(s): R91.1 - Solitary pulmonary nodule Status: Acute Assessment and Plan: CHUCKIE airsace opacity noted on CXR. This is been noted on previous imaging, and fact this stay shows some improvement. Will defer further workup to her primary care provider, a chest CT recommended. Patient made aware and will follow up with PCP (12) Tobacco abuse: Code(s): Z72.0 - Tobacco use Status: Acute Assessment and Plan: Given her multitude of health problems, is imperative that she stop smoking. It does not sound as though she
[2019-09-26] MEDS: carvediloL 6.25 MG TABLET PO (08:36)
[2019-09-26] MEDS: MONTELUKAST SODIUM 10 MG TABLET PO (08:37)
[2019-09-26] MEDS: ASPIRIN 81 MG ENTERIC TABLET PO (08:37)
[2019-09-26] MEDS: CLOPIDOGREL BISULFATE 75 MG TABLET PO (08:37)
[2019-09-26] MEDS: ATORVASTATIN 40 MG TABLET PO (08:37)
[2019-09-26] MEDS: MAGNESIUM SULF 2 GM/WATER 50ML 2 GM/50 ML BAG IVPB (08:40)
--- NOTE | 2019-09-26 11:48 | P.DS_ITS ---
DS: Admitting Diagnosis Admitting Diagnosis Admitting Diagnosis: recurrent syncope due to Orthostatic hypotension, electrolyte imbalance DS: Discharge Diagnosis Discharge Diagnosis (1) Recurrent syncope: Code(s): R55 - Syncope and collapse Status: Acute Assessment and Plan: Secondary to orthostatic hypotension. Cardiology following and appreciate recommendations/management. Patient okay for discharge from a cardiology standpoint. * Diuretics are on hold at this point. * Given her severe cardiomyopathy, encouraged p.o. fluid intake. * Monitor orthostatic vital signs Q shift. * Fall precautions. (2) Orthostatic hypotension: Code(s): I95.1 - Orthostatic hypotension Status: Acute Assessment and Plan: * Secondary to over-diuresis and dehydration. * Initiate fall precautions and monitor orthostatic vital signs q. shift. (3) Ischemic cardiomyopathy: Code(s): I25.5 - Ischemic cardiomyopathy Status: Acute Assessment and Plan: * With an ejection fraction as low as 20%, status post defibrillator. * Cardiology following (4) Hypomagnesemia: Code(s): E83.42 - Hypomagnesemia Status: Acute Assessment and Plan: Mag 1.6 this morning * Will be replaced as needed and monitored closely. (5) Hyponatremia: Code(s): E87.1 - Hypo-osmolality and hyponatremia Status: Acute Assessment and Plan: Na 127 today, down, but relatively stable. Due to aggressive diuresis, which is currently being held. * P.o. fluid intake encouraged. * Will continue to monitor closely. (6) Hypokalemia: Code(s): E87.6 - Hypokalemia Status: Acute Assessment and Plan: K 4.2 this morning; improved * BMP daily if patient stays overnight * Potassium will be replaced as needed and monitored. (7) Polycythemia: Code(s): D75.1 - Secondary polycythemia Status: Acute Assessment and Plan: Improvement overnight. Presumably hemoconcentration from dehydration. * Will repeat CBC in a.m. should patient stay overnight. CBC as outpatient if p atient d/c (8) Elevated LFTs: Code(s): R79.89 - Other specified abnormal findings of blood chemistry Status: Acute Assessment and Plan: Possibly mild shock liver from hypotension. Hepatic panel negative. RUQ US negative. She is clinically compensated with regards were congestive heart failure making passive congestion unlikely. * OP follow up with PCP (9) Elevated troponin: Code(s): R79.89 - Other specified abnormal findings of blood chemistry Status: Acute Assessment and Plan: * She is not having any chest pain, and likely this is demand ischemia from hypotension. (10) COPD with asthma: Code(s): J44.9 - Chronic obstructive pulmonary disease, unspecified Status: Acute Assessment and Plan: No acute issues. Patient's respiratory status has been unchanged. Faint wheezing noted on exam * Continue home medication regimen * Monitor for change in respiratory status
--- NOTE | 2019-09-26 11:48 | PM.DS ---
DS: Admitting Diagnosis Admitting Diagnosis Admitting Diagnosis: recurrent syncope due to Orthostatic hypotension, electrolyte imbalance DS: Discharge Diagnosis Discharge Diagnosis (1) Recurrent syncope: Code(s): R55 - Syncope and collapse Status: Acute Assessment and Plan: Secondary to orthostatic hypotension. Cardiology following and appreciate recommendations/management. Patient okay for discharge from a cardiology standpoint. Diuretics are on hold at this point. Given her severe cardiomyopathy, encouraged p.o. fluid intake. Monitor orthostatic vital signs Q shift. Fall precautions. (2) Orthostatic hypotension: Code(s): I95.1 - Orthostatic hypotension Status: Acute Assessment and Plan: Secondary to over-diuresis and dehydration. Initiate fall precautions and monitor orthostatic vital signs q. shift. (3) Ischemic cardiomyopathy: Code(s): I25.5 - Ischemic cardiomyopathy Status: Acute Assessment and Plan: With an ejection fraction as low as 20%, status post defibrillator. Cardiology following (4) Hypomagnesemia: Code(s): E83.42 - Hypomagnesemia Status: Acute Assessment and Plan: Mag 1.6 this morning Will be replaced as needed and monitored closely. (5) Hyponatremia: Code(s): E87.1 - Hypo-osmolality and hyponatremia Status: Acute Assessment and Plan: Na 127 today, down, but relatively stable. Due to aggressive diuresis, which is currently being held. P.o. fluid intake encouraged. Will continue to monitor closely. (6) Hypokalemia: Code(s): E87.6 - Hypokalemia Status: Acute Assessment and Plan: K 4.2 this morning; improved BMP daily if patient stays overnight Potassium will be replaced as needed and monitored. (7) Polycythemia: Code(s): D75.1 - Secondary polycythemia Status: Acute Assessment and Plan: Improvement overnight. Presumably hemoconcentration from dehydration. Will repeat CBC in a.m. should patient stay overnight. CBC as outpatient if patient d/c (8) Elevated LFTs: Code(s): R79.89 - Other specified abnormal findings of blood chemistry Status: Acute Assessment and Plan: Possibly mild shock liver from hypotension. Hepatic panel negative. RUQ US negative. She is clinically compensated with regards were congestive heart failure making passive congestion unlikely. OP follow up with PCP (9) Elevated troponin: Code(s): R79.89 - Other specified abnormal findings of blood chemistry Status: Acute Assessment and Plan: She is not having any chest pain, and likely this is demand ischemia from hypotension. (10) COPD with asthma: Code(s): J44.9 - Chronic obstructive pulmonary disease, unspecified Status: Acute Assessment and Plan: No acute issues. Patient's respiratory status has been unchanged. Faint wheezing noted on exam Continue home medication regimen Monitor for change in respiratory status (11) Lung nodule: Code(s): R91.1 - Solitary pulmonary nodule Status: Acute Assessment and Plan: CHUCKIE airsace opacity noted on CXR. This is been noted on previous imaging, and fact this stay shows some improvement. Will defer further workup to her primary care provider, a chest CT recommended. Patient made aware and will follow up with PCP (12) Tobacco
--- NOTE | 2019-09-26 12:42 | PM.PNCARD ---
Progress Note: A&P Assessment and Plan (1) Orthostatic hypotension: Code(s): I95.1 - Orthostatic hypotension Status: Acute Assessment and Plan: Resolved after additional IV fluids yesterday afternoon and reduction in carvedilol to 6.25 mg twice daily. Patient feels well and is not orthostatic this morning. She would like to be discharged. Continue carvedilol 6.25 mg twice daily with out of potassium or diuretics at this time. Recommend basic metabolic panel as an outpatient in 1 week. Stable for discharge from cardiac perspective. Follow up as an outpatient as scheduled. Ambulate with caution rise slowly from seated position to avoid risk for falls and injuries. Patient verbalized understanding but recommendation and agreed to comply with the plan of care. She has been explicitly advised to fall recommendations with regards to heart failure management low sodium diet monitoring fluid intake and to communicate immediately any new questions or concerns. (2) Acute hypokalemia: Code(s): E87.6 - Hypokalemia Status: Acute Assessment and Plan: Resolved. (3) Acute hyponatremia: Code(s): E87.1 - Hypo-osmolality and hyponatremia Status: Acute Assessment and Plan: Improving. Diuretics remain on hold but she will require re-initiation believes low-dose Lasix as an outpatient. (4) COPD with asthma: Code(s): J44.9 - Chronic obstructive pulmonary disease, unspecified Status: Acute Assessment and Plan: Stable. Per primary service. (5) Ischemic cardiomyopathy: Code(s): I25.5 - Ischemic cardiomyopathy Status: Acute Assessment and Plan: Compensated. Severe LV dysfunction. Has not been able to tolerate optimal medical therapy in the past due to hypotension. She will call the office with greater than 3 lb weight gain, edema or worsening shortness of breath immediately so that we can manage heart failure symptoms as she will require diuretic therapy in the future. (6) Elevated troponin: Code(s): R79.89 - Other specified abnormal findings of blood chemistry Status: Acute Assessment and Plan: Most likely demand ischemia due to hypotension/intravascular volume depletion. No anginal symptoms. Most likely type 2 infarct not acute coronary syndrome. (7) CAD (coronary artery disease): Code(s): I25.10 - Atherosclerotic heart disease of [place] coronary artery without angina pectoris Status: Acute Assessment and Plan: No anginal symptoms. Continue dual antiplatelet therapy, statin. (8) ICD (implantable cardioverter-defibrillator) in place: Code(s): Z95.810 - Presence of automatic (implantable) cardiac defibrillator Status: Acute Assessment and Plan: Normal device function. No acute issues. Subjective Date/time seen: Date of service: 09/26/19 12:42 Follow-up for orthostatic hypotension, severe cardiomyopathy, hypokalemia Interval history: She feels fantastic this morning. She is no longer orthostatic, denies dizziness, lightheadedness and states she has not thirsty ordered feeling dehydrated. She denies chest pain or shortness of breath. No edema. No new issues overnight. Potassium is repleted >4.0. And gave her an additional 250 cc normal saline yesterday afternoon which significantly improved her sxs along with reduction in Coreg to 6.25mg BID. Review of Systems Review of Systems: All systems reviewed & are unremarkable except as noted in HPI and below Constitutional: Constitutional: Reports as per HPI, Reports no additional constitutional complaints, Denies excessive sweating, Denies fatigue and Denies weakness Eyes: Eyes: Reports as per HPI and Reports no additional eye complaints ENT: Reports system reviewed and no additional complaints, except as documented and Reports as per HPI Cardiovascular: Cardiovascular: Reports as per HPI, Reports no additional cardiovascular complaints
[2019-09-28 04:07] LABS: Osmolality, Urine 359 mOsm/kg (50-1200)
== END 2019-09-26 17:17 | disposition home or self-care (01) | DRG 280 ==
LOC: ANHED 11:47 → ANHIMU 11:59
PROVIDERS: Internal Medicine Cardiovascular Disease; Physician Assistant; Admitting Provider Internal Medicine; Emergency Provider Emergency Medicine; PCP Internal Medicine; Visit Provider Family Medicine
DX: I95.1 Orthostatic hypotension (principal); I21.A1 Myocardial infarction type 2; K72.00 Acute and subacute hepatic failure without coma; E87.1 Hypo-osmolality and hyponatremia; E86.0 Dehydration; E83.42 Hypomagnesemia; E87.6 Hypokalemia; T50.2X5A Adverse effect of carbonic-anhydrase inhibitors, benzothiadiazides and other diuretics, initial encounter; I25.5 Ischemic cardiomyopathy; I11.0 Hypertensive heart disease with heart failure; I50.9 Heart failure, unspecified; D75.1 Secondary polycythemia; G47.33 Obstructive sleep apnea (adult) (pediatric); J44.9 Chronic obstructive pulmonary disease, unspecified; R91.1 Solitary pulmonary nodule; I25.10 Atherosclerotic heart disease of native coronary artery without angina pectoris; I73.9 Peripheral vascular disease, unspecified; E78.5 Hyperlipidemia, unspecified; F17.210 Nicotine dependence, cigarettes, uncomplicated; I25.2 Old myocardial infarction; Z85.72 Personal history of non-Hodgkin lymphomas; Z86.73 Personal history of transient ischemic attack (TIA), and cerebral infarction without residual deficits; Z95.5 Presence of coronary angioplasty implant and graft; Z86.718 Personal history of other venous thrombosis and embolism; Z95.810 Presence of automatic (implantable) cardiac defibrillator; Z79.82 Long term (current) use of aspirin
CPT/HCPCS: 36415; 36600; 70450; 71045; 76705; 80048; 80053; 80074; 80076; 81001; 82375; 82533; 82570; 82805; 83050; 83735; 83930; 83935; 84132; 84300; 84443; 84484; 85025; 85610; 85730; 93005; 96361; 96365; 96366; 96367; 99285; A9270; G0378; J3475; J3480; J7030; J7050

== ENCOUNTER 2019-10-01 08:19 | Outpatient (CLI) | payer MEDICARE, MEDICAID, SELFPAY ==
[2019-10-01 08:45] LABS: Hematocrit 47.1 % (37.0-47.0); Hemoglobin 14.9 g/dL (12.0-15.0); Mean Corpuscular HGB Conc 31.6 g/dl (32-36); Mean Corpuscular Hemoglobin 30.1 pg (26-34); Mean Corpuscular Volume 95.2 fl (80-100); Mean Platelet Volume 10.2 fl (7.4-10.4); Platelet Count Result 176 k/mm3 (150-375); Red Blood Count 4.95 M/mm3 (4.2-5.4); Red Cell Distribution Width 15.7 % (11.5-14.5); White Blood Count 5.9 K/mm3 (4.5-10.0)
[2019-10-01 09:08] LABS: Blood Urea Nitrogen 12 mg/dL (7-17); Calcium 8.9 mg/dL (8.4-10.2); Carbon Dioxide 29 mmol/L (22-30); Chloride 99 mmol/L (98-107); Estimated Glomerular Filt Rate > 60; Glucose 74 mg/dL (65-105); Magnesium 1.7 mg/dL (1.6-2.3); Potassium 4.3 mmol/L (3.4-5.0); Sodium 132 mmol/L (137-145)
== END 2019-10-01 08:20 | disposition home or self-care (01) ==
PROVIDERS: PCP Internal Medicine; Referring Provider Physician Assistant; Visit Provider Nurse Practitioner Adult Health
DX: E83.42 Hypomagnesemia (principal); E87.6 Hypokalemia; I25.5 Ischemic cardiomyopathy; D75.1 Secondary polycythemia
CPT/HCPCS: 36415; 80048; 83735; 85027

== ENCOUNTER 2019-10-09 11:21 | Outpatient (CLI) | payer MEDICARE, MEDICAID, SELFPAY ==
--- NOTE | ~2019-10-09 | CT_ITS ---
EXAMINATION: CT chest wo con DATE: 10/09/2019 11:38 INDICATION: Solitary pulmonary nodule TECHNIQUE: Computed tomography (CT) of the chest was performed without intravenous contrast. The dose -length product (DLP) was 89.20 mGy-cm. Automated exposure control and iterative reconstruction techn ique were employed. COMPARISON: 09/24/2019, 06/25/2019, 07/30/2017, 02/12/2017 FINDINGS: There is mild emphysema. Cardiomegaly is noted. There is smooth interlobular septal thicken ing. There is a persistent airspace opacity of the lingula. There appears to be cut off of the lingul ar bronchus with airspace opacity predominantly peripheral to the area of cut off. There are small pl eural effusions. No pneumothorax is identified. There is a single lead pacemaker of the right chest w all. There are no pathologically enlarged thoracic lymph nodes. IMPRESSION: 1. Persistent lingular opacity with possible obstruction of the lingular bronchus. Bronchoscopy is re commended. 2. Cardiomegaly with mild pulmonary edema. Reviewed, dictated and finalized at location A. IMPRESSION: 1. Persistent lingular opacity with possible obstruction of the lingular bronch us. Bronchoscopy is recommended. 2. Cardiomegaly with mild pulmonary edema.
== END 2019-10-09 11:22 | disposition home or self-care (01) ==
PROVIDERS: PCP Internal Medicine; Visit Provider Nurse Practitioner Family
DX: R91.1 Solitary pulmonary nodule (principal); I51.7 Cardiomegaly; J81.1 Chronic pulmonary edema; R91.8 Other nonspecific abnormal finding of lung field
CPT/HCPCS: 71250

== ENCOUNTER 2019-10-28 01:01 | Outpatient (CLI) | payer MEDICARE, MEDICAID, SELFPAY ==
[2019-10-28 19:25] LABS: SARS-CoV-2 RNA PCR Negative
== END 2019-10-28 01:02 | disposition home or self-care (01) ==
LOC: ANHCOVIDDT 01:01
PROVIDERS: PCP Internal Medicine; Visit Provider Internal Medicine Critical Care Medicine
DX: Z01.818 Encounter for other preprocedural examination (principal); Z11.59 Encounter for screening for other viral diseases
CPT/HCPCS: 87635; C9803; U0003

== ENCOUNTER 2019-10-30 01:55 | Day surgery (SDC) | payer MEDICARE, MEDICAID, SELFPAY ==
[2019-10-27 11:09] VITALS: BMI 27.0
[2019-10-30] VITALS (9 sets, daily range): BP systolic 113–146; BP diastolic 64–92; PULSE 73–81; RESP 18–24; TEMP 36.5–36.7; O2SAT 92–97
[2019-10-30] MEDS: LACTATED RINGERS 1,000 ML 150 ML IV CONT (12:11)
--- NOTE | 2019-10-30 12:43 | WPDANESEPPF ---
Anes - Initial Pre Proc Eval Procedure: Operation Date: 10/30/19 13:00 Proposed Procedures p Bronchoscopy - Ese Boston MD Date/Time: 10/30/19 12:43 Surgeon: Ese Boston MD Pre Op Diagnosis: pulmonary nodule Patient Data Age: 59 Gender: F Height: 5 ft 7 in Weight: 78.1 kg Last Vital Signs Temp 36.7 C 10/30/19 11:53 Pulse 73 10/30/19 11:53 Resp 18 10/30/19 11:53 BP 136/82 10/30/19 11:53 Pulse Ox 95 10/30/19 11:53 Allergies Allergy/AdvReac Type Severity Reaction Status Date / Time valsartan Allergy Unknown Hypotension Verified 10/30/19 11:50 Home Medications Medication Instructions Recorded Confirmed Type aspirin 81 mg tablet,delayed 81 mg PO DAILY 06/20/19 10/30/19 History release atorvastatin 40 mg tablet 40 mg PO DAILY 06/20/19 10/30/19 History nitroglycerin 0.4 mg sublingual 0.4 mg SUBLINGUAL Q5M PRN 06/20/19 10/30/19 History tablet albuterol sulfate 2.5 mg/0.5 mL 2.5 mg INHALATION TID PRN #90 each 06/24/19 10/30/19 Rx solution for nebulization albuterol sulfate 90 mcg/actuation 1 puff INHALATION Q4H PRN 06/24/19 10/30/19 History aerosol inhaler clopidogrel [Plavix] 75 mg PO DAILY 09/24/19 10/30/19 History carvedilol [Coreg] 6.25 mg PO Q12HR #60 tablet 09/26/19 10/30/19 Rx montelukast 10 mg tablet See Rx Instructions .ROUTE 09/29/19 10/30/19 Rx .COMPLEX #30 tablet budesonide-formoterol HFA 160 2 puff INHALATION Q12H PRN 10/02/19 10/30/19 History mcg-4.5 mcg/actuation aerosol inhaler acetaminophen [Tylenol] 325 mg PO ONCE PRN 10/27/19 10/27/19 History furosemide 20 mg PO BID 10/27/19 10/30/19 History potassium chloride 10 meq PO DAILY 10/27/19 10/30/19 History Patient hx anesthesia problems: none Family hx anesthesia problems: none PMFSH Past Medical History Medical History Cerebrovascular accident No residual deficits. Chronic obstructive pulmonary disease Congestive heart failure Coronary artery disease With history of myocardial infarction. Patient has several stents in place. Hypertension Ischemic cardiomyopathy EF as low as 10 to 15% in September 2012. Status post defibrillator insertion. Lung nodule Left upper lobe opacity noted on imaging. Obstructive sleep apnea Untreated. Peripheral vascular disease With history of stents to the lower extremity. Right leg DVT Tobacco abuse Surgical History Surgical History History of appendectomy History of carpal tunnel release History of coronary angioplasty with insertion of stent History of insertion of stent into coronary artery bypass graft History of tonsillectomy and adenoidectomy History of vascular surgery Right iliac stent. Presence of combination internal cardiac defibrillator (ICD) and pacemaker (~2012) Family History Family History Mother Diabetes mellitus, Onset Age: 66 Family history of coronary artery disease, Onset Age: 66 Family history of throat cancer, Onset Age: 66 Father Acute myocardial infarction, Onset Age: 48 Sibling Acute myocardial infarction, Onset Age: 39 Family history of chronic obstructive pulmonary disease Family history of malignant neoplasm of ovary Family history of seizure disorder Other Family history of cardiovascular disease Hypertension Social History Social History Social History: Surrogate decision maker: Ernst Martinez, . Code status: Full code. Smoking packs per day: 0.5 Smoking cigarettes per day: 10.0 Years smoked: 40 Smoking pack-years: 20.00 Smoking status: Current every day smoker Tobacco type: cigarettes Second hand tobacco smoke exposure: No Alcohol intake: never Substance use: never Additional living arrangements comments: [facility]
--- NOTE | 2019-10-30 13:28 | SUR.OPER ---
[id number] SPOUSE (CORWIN) CALLED BACK AND WAS UPDATED ON PROCEDURE
--- NOTE | 2019-10-31 11:03 | HP_ITS ---
This report was moved to the correct visit, [id number] on October 31, 2019. Original report was signed by Dr. Becky Lou on October 31, 2019 at 1103. Addendum was signed by Dr. Becky Dwyer October 31, 2019 at 1214. ADDENDUM I examined the patient and her status is unchanged from status when examined in the office by Ky Medina. Patient consents to proceeding with Bronchoscopy. Addendum Documented By: Becky Lou MD 10/31/19 1214 Addendum Signed By: <Electronically signed by Becky sexton MD> 10/31/19 1214 Assessment and Plan Assessment and plan (1) Atelectasis of left lung: Code(s): J98.11 - Atelectasis Status: Acute Assessment and Plan: - Bronchoscopy with possible biopsies and brushings today - patient says she's been off of ASA and Plavix since October 23 ( six days) History of Present Illness History of Present Illness Consult date: 10/30/19 Narrative: Patient with CHUCKIE atelectesis, COPD, ischemic cardiomyopathy undering going bronchoscopy today with possible biopsies. Please prior notes from our office for details. Review of Systems Review of Systems: All systems reviewed & are unremarkable except as noted in HPI and below PMFSH Social History Social History Social History: Surrogate decision maker: Ernst Martinez, . Code status: Full code. Smoking packs per day: 0.5 Smoking cigarettes per day: 10.0 Years smoked: 40 Smoking pack-years: 20.00 Smoking status: Current every day smoker Tobacco type: cigarettes Second hand tobacco smoke exposure: No Alcohol intake: never Substance use: never Additional living arrangements comments: Patient lives at home with her in [place], [place]. Additional occupation/education comments: On disability. Gender identity (if verbalized by the patient): Female Spiritual care concerns: No Meds Home Medications and Allergies Home Medications Medication Instructions Recorded Confirmed Type aspirin 81 mg tablet,delayed 81 mg PO DAILY 06/20/19 10/30/19 History release atorvastatin 40 mg tablet 40 mg PO DAILY 06/20/19 10/30/19 History nitroglycerin 0.4 mg sublingual 0.4 mg SUBLINGUAL Q5M PRN 06/20/19 10/30/19 History tablet albuterol sulfate 2.5 mg/0.5 mL 2.5 mg INHALATION TID PRN #90 each 06/24/19 10/30/19 Rx solution for nebulization albuterol sulfate 90 mcg/actuation 1 puff INHALATION Q4H PRN 06/24/19 10/30/19 History aerosol inhaler clopidogrel [Plavix] 75 mg PO DAILY 09/24/19 10/30/19 History carvedilol [Coreg] 6.25 mg PO Q12HR #60 tablet 09/26/19 10/30/19 Rx montelukast 10 mg tablet See Rx Instructions .ROUTE 09/29/19 10/30/19 Rx .COMPLEX #30 tablet budesonide-formoterol HFA 160 2 puff INHALATION Q12H PRN 10/02/19 10/30/19 History mcg-4.5 mcg/actuation aerosol inhaler acetaminophen [Tylenol] 325 mg PO ONCE PRN 10/27/19 10/27/19 History furosemide 20 mg PO BID 10/27/19 10/30/19 History potassium chloride 10 meq PO DAILY 10/27/19 10/30/19 History Allergies Allergy/AdvReac Type Severity Reaction Status Date / Time valsartan Allergy Unknown Hypotension Verified 10/30/19 11:50 Exam Narrative: Exam Narrative: Patient sitting upright on side of bed at time of
== END 2019-10-30 15:00 | disposition home or self-care (01) ==
PROVIDERS: PCP Internal Medicine; Visit Provider Internal Medicine Critical Care Medicine
PROC: 0BJ08ZZ Inspection of Tracheobronchial Tree, Via Natural or Artificial Opening Endoscopic (ICD-10-PCS; CPT 31622; principal; 2019-10-30 13:00)
DX: J98.11 Atelectasis (principal); J98.4 Other disorders of lung; I11.0 Hypertensive heart disease with heart failure; I50.9 Heart failure, unspecified; I25.5 Ischemic cardiomyopathy; J44.9 Chronic obstructive pulmonary disease, unspecified; I25.10 Atherosclerotic heart disease of native coronary artery without angina pectoris; I25.2 Old myocardial infarction; I73.9 Peripheral vascular disease, unspecified; Z95.5 Presence of coronary angioplasty implant and graft; Z86.73 Personal history of transient ischemic attack (TIA), and cerebral infarction without residual deficits; Z79.02 Long term (current) use of antithrombotics/antiplatelets; Z79.82 Long term (current) use of aspirin; F17.210 Nicotine dependence, cigarettes, uncomplicated
CPT/HCPCS: 31625; 31623; 88104; 88108; 88160; 88184; 88300; 88305; J2370; J2704; J7120

== ENCOUNTER 2019-11-05 10:12 | Outpatient (CLI) | payer MEDICARE, MEDICAID, SELFPAY ==
[2019-11-05 11:06] LABS: Anion Gap 11.3 mmol/L (7-16); Blood Urea Nitrogen 13 mg/dL (7-17); Calcium 8.8 mg/dL (8.4-10.2); Carbon Dioxide 29 mmol/L (22-30); Chloride 97 mmol/L (98-107); Estimated Glomerular Filt Rate > 60; Glucose 94 mg/dL (65-105); Potassium 4.3 mmol/L (3.4-5.0); Sodium 133 mmol/L (137-145)
== END 2019-11-05 10:13 | disposition home or self-care (01) ==
PROVIDERS: PCP Internal Medicine; Visit Provider Internal Medicine Cardiovascular Disease
DX: I25.5 Ischemic cardiomyopathy (principal); I50.22 Chronic systolic (congestive) heart failure
CPT/HCPCS: 36415; 80048

== ENCOUNTER 2019-11-18 07:49 | Outpatient (CLI) | payer MEDICARE, MEDICAID, SELFPAY ==
--- NOTE | ~2019-11-18 | PE_ITS ---
EXAMINATION: PET skull to mid thigh DATE: 11/18/2019 11:29 INDICATION: Solitary pulmonary nodule. TECHNIQUE: Blood glucose level was 88 mg/dL. 8.971 mCi of 18-fluorodeoxyglucose (18-FDG) was administ ered i.v. Low dose computed tomography (CT) images were acquired from the base of the brain to the pr oximal thighs for attenuation correction and anatomic localization. Automated exposure control was em ployed. Dose-length product (DLP) was 711 mGy-cm. Positron emission tomography (PET) images were acqu ired in the same distribution. COMPARISON: Chest CT 10/09/2019, 07/30/2017 FINDINGS: Head/neck: There are no pathologically enlarged lymph nodes. Chest: There is mild emphysema. There is smooth septal thickening in the lungs, consistent with mild pulmonary edema. There is mild atelectasis bilaterally. There are airspace and groundglass opacities in lingula. There is focal perihilar increased activity in lingula measuring 13 mm with maximum SUV o f 3.8. There is a trace left pleural effusion. Cardiomegaly is noted. There is a small pericardial ef fusion. There is a right chest pacer with leads in right ischium and right ventricle. There are coron waqar artery calcifications. There is mild mediastinal lymphadenopathy without increased activity, like ly reactive. Abdomen/pelvis/proximal thighs: The liver, gallbladder, spleen, pancreas, adrenal glands, and kidneys are normal. There is calcified atherosclerosis of the aorta and many of the other arteries. There is a stent in right common iliac artery and external iliac artery. There are no dilated loops of bowel. There are no pathologically enlarged lymph nodes. There is no free intraperitoneal fluid. There is n o osseous malignancy. IMPRESSION: 1. Focal increased activity in perihilar lingula, which may be inflammation/infection or malignancy. Bronchoscopy is recommended. Airspace and groundglass opacities without increased activity peripheral to this area are likely predominantly atelectasis. 2. Mild pulmonary edema. 3. Cardiomegaly. Small pericardial effusion. Reviewed, dictated and finalized at location B. IMPRESSION: 1. Focal increased activity in perihilar lingula, which may be inflammation/inf ection or malignancy. Bronchoscopy is recommended. Airspace and groundglass opa cities without increased activity peripheral to this area are likely predominan tly atelectasis. 2. Mild pulmonary edema. 3. Cardiomegaly. Small pericardial effusion.
[2019-11-18 08:11] LABS: Glucose Point of Care 88 (65-105)
== END 2019-11-18 07:50 | disposition home or self-care (01) ==
PROVIDERS: PCP Internal Medicine; Visit Provider Internal Medicine Critical Care Medicine
DX: R91.1 Solitary pulmonary nodule (principal); J81.1 Chronic pulmonary edema; I51.7 Cardiomegaly; I31.3 Pericardial effusion (noninflammatory)
CPT/HCPCS: 78815; A9552

== ENCOUNTER 2019-12-02 10:27 | Outpatient (CLI) | payer MEDICARE, MEDICAID, SELFPAY ==
[2019-12-02 11:47] LABS: Anion Gap 7 mmol/L (8-16); Blood Urea Nitrogen 17 mg/dL (7-17); Calcium 9.1 mg/dL (8.4-10.2); Carbon Dioxide 30 mmol/L (22-30); Chloride 96 mmol/L (98-107); Estimated Glomerular Filt Rate > 60; Glucose 112 mg/dL (65-105); Potassium 3.7 mmol/L (3.4-5.0); Sodium 133 mmol/L (137-145)
== END 2019-12-02 10:28 | disposition home or self-care (01) ==
PROVIDERS: PCP Internal Medicine; Referring Provider Internal Medicine Cardiovascular Disease; Visit Provider Internal Medicine Critical Care Medicine
DX: J18.9 Pneumonia, unspecified organism (principal); I50.23 Acute on chronic systolic (congestive) heart failure
CPT/HCPCS: 36415; 80048; 87070; 87205

== ENCOUNTER 2019-12-22 09:46 | Inpatient (IN) | payer MEDICARE, MEDICAID, SELFPAY ==
[2019-12-22] VITALS (12 sets, daily range): BP systolic 97–138; BP diastolic 75–94; PULSE 51–103; RESP 16–26; TEMP 35.8–36.6; O2SAT 94–100
--- NOTE | ~2019-12-22 | XR_ITS ---
EXAMINATION: XR chest 2V EXAM DATE: 12/22/2019 10:20 INDICATION: Right-sided chest pain, sharp shooting pains for one week. TECHNIQUE: Portable AP frontal chest x-ray was obtained. Comparison is made to prior examination from 09/24/2019. FINDINGS: There is single lead pacemaker/AICD device seen with tip projecting over the expected loca tion of right ventricle. Cardiac silhouette is enlarged, and larger than on prior study. Could be car diomegaly and/or pericardial effusion. Coronary artery stent. There is improvement in previously seen left midlung zone airspace disease with small amount of linea r residual left, probably scarring or atelectasis. There is no pneumothorax suspected. There are no p leural effusions. Moderate hyperinflation. Right humeral bone island. There is aortic arteriosclerosi s. IMPRESSION: 1. Enlarged cardiac silhouette, cardiomegaly and/or effusion. 2. Linear left midlung zone atelectasis. 3. Moderate hyperinflation. Reviewed, dictated and finalized at location A.
--- NOTE | ~2019-12-22 | CT_ITS ---
EXAMINATION: CTA chest PE protocol DATE: 12/22/2019 12:52 INDICATION: Right upper chest pain. Shortness of breath. Nausea and vomiting. TECHNIQUE: Computed tomography (CT) pulmonary angiogram of the chest was performed with 100 mL Omnipa que-350 intravenous contrast. Additional 3D reconstructions utilizing coronal maximum intensity proje ction (MIP) were performed. Automated exposure control and iterative reconstruction technique were em ployed. The dose-length product was 294.11 mGy-cm. COMPARISON: None FINDINGS: Excellent contrast opacification of the pulmonary arteries. There is mild streak artifact from dense contrast in the superior vena cava and right atrium. Mild scattered respiratory motion artifact which does not significantly limit evaluation. There is a filling defect consistent with extending across the bifurcation of the right main pulmonary artery extending into the anteromedial basilar segmental pulmonary artery of the left lower lobe and an significantly narrows the origin of the lingular pulmo nary artery. There is abrupt cut off of contrast within the lateral basilar pulmonary artery of the l eft lower lobe also likely related to pulmonary embolism. Band of nonenhancing atelectasis likely rel ated to pulmonary infarct in the lateral basilar segment of the left lower lobe. Minimal change in ch ronic scarring at the lingula and anteromedial basilar segments of the left lower lobe. Smooth septal line thickening at the lung bases and apices consistent with mild pulmonary edema. No pneumonia or p leural effusion. Moderate cardiomegaly with enlargement of the left ventricle and right atrium and to lesser degree the left atrium and right ventricle. Coronary artery disease. Cardiac pacemaker/defibr illator with lead tip near the apex of the right ventricle. Small pericardial effusion. Thoracic aort a is normal in caliber. No pathologically enlarged thoracic lymphadenopathy. Reflux of contrast into the inferior vena cava and hepatic veins consistent with tricuspid regurgitation. Bones are unremarka ble. IMPRESSION: 1. Left-sided pulmonary embolism at the bifurcation of the left mainstem bronchus and extending into couple of the basilar segmental pulmonary arteries of the left lower lobe. 2. Marked cardiomegaly with mild pulmonary edema. 3. Small pericardial effusion. Reviewed, dictated and finalized at location A. IMPRESSION: 1. Left-sided pulmonary embolism at the bifurcation of the left mainstem bronch us and extending into couple of the basilar segmental pulmonary arteries of the left lower lobe. 2. Marked cardiomegaly with mild pulmonary edema. 3. Small pericardial effusion.
--- NOTE | ~2019-12-22 | US_ITS ---
EXAMINATION:US venous doppler LE BI INDICATION:Pulmonary embolism TECHNIQUE: Multiple grayscale, color flow and Doppler images of the right and left lower extremity de ep venous systems were obtained and reviewed. COMPARISON:No prior studies for comparison. FINDINGS: The common femoral, superficial femoral and popliteal veins demonstrate normal respiratory variation, augmentation and compressibility. Color flow is also seen within the posterior tibial, pe roneal, greater saphenous and profunda veins. IMPRESSION: 1: No lower extremity deep venous thrombosis. Reviewed, dictated and finalized at location B.
--- NOTE | 2019-12-22 09:53 | ECG_ITS ---
Measurements Intervals [place] Rate: 91 P: 56 CT: 211 QRS: 153 QRSD: 126 T: 28 QT: 367 QTc: 452 Interpretive Statements SINUS RHYTHM WITH FIRST DEGREE AV BLOCK RIGHT AXIS DEVIATION POSSIBLE RIGHT ATRIAL ENLARGEMENT LEFT ATRIAL ENLARGEMENT INTRAVENTRICULAR CONDUCTION DELAY POOR R WAVE PROGRESSION, ANTERIOR LEADS BASELINE WANDER- V4-V5 ABNORMAL ECG Electronically Signed On 12-22-2019 10:04:42 CDT by Miguel A Alvarado D.O.
[2019-12-22 10:14] LABS: Basophils Percent Auto 0.4 % (0.2-1.2); Eosinophils Percent Auto 0.6 % (0-4.4); Hematocrit 46.1 % (37.0-47.0); Hemoglobin 14.9 g/dL (12.0-15.0); Immature Granulocyte Absolute 0.01 K/mm3 (0.00-0.031); Immature Granulocyte Percent A 0.2 % (0-0.5); Lymphocytes Absolute Auto 1.92 K/mm3 (0.9-3.2); Mean Corpuscular HGB Conc 32.3 g/dl (32-36); Mean Corpuscular Hemoglobin 30.7 pg (26-34); Mean Corpuscular Volume 95.1 fl (80-100); Mean Platelet Volume 11.1 fl (7.4-10.4); Monocytes Absolute Auto 0.4 K/mm3 (0.1-0.6); Monocytes Percent Auto 8.5 % (2.6-8.5); Neutrophils Absolute Auto 2.8 K/mm3 (1.3-6.7); Neutrophils Percent Auto 53.3 % (45.5-73.1); Nucleated Red Blood Cells Perc 0.6 % (0.0-0.2); Platelet Count Result 141 k/mm3 (150-375); Red Blood Count 4.85 M/mm3 (4.2-5.4); Red Cell Distribution Width 16.6 % (11.5-14.5); White Blood Count 5.2 K/mm3 (4.5-10.0)
[2019-12-22 10:24] LABS: Anion Gap 9 mmol/L (8-16); Blood Urea Nitrogen 15 mg/dL (7-17); Calcium 9.3 mg/dL (8.4-10.2); Carbon Dioxide 25 mmol/L (22-30); Chloride 96 mmol/L (98-107); Estimated CRCL calculation 85 ml/min; Estimated Glomerular Filt Rate > 60; Glucose 91 mg/dL (65-105); Potassium 5.2 mmol/L (3.4-5.0); Sodium 130 mmol/L (137-145)
[2019-12-22 10:26] LABS: INR 1.5; Prothrombin Time 18.1 Seconds (11.1-14.7)
[2019-12-22 10:27] LABS: Partial Thromboplastin Time 29.7 SECONDS (22.3-36.8)
[2019-12-22] MEDS: ASPIRIN 81 MG CHEWABLE TABLET 324 MG PO (10:40)
--- NOTE | 2019-12-22 10:40 | PC.NURSE ---
X3 81MG ASA GIVEN TO PT, PT TOOK 1 81 MG ASA MERCHANDISING TEAM LEAD.
[2019-12-22 10:58] LABS: Alanine Aminotransferase 35 U/L (4-35); Albumin Level 3.7 g/dL (3.5-5.1); Alkaline Phosphatase 131 U/L (38-126); Aspartate Amino Transferase 53 U/L (14-36); Bilirubin,Total 1.4 mg/dL (0.2-1.3); Lipase 133 U/L (23-300)
--- NOTE | 2019-12-22 11:07 | PC.NURSE ---
REPORT GIVEN TO TERRELL MONTGOMERY AT THE BEDSIDE AT THIS TIME, SHE HAS ASSUMED PT CARE.
--- NOTE | 2019-12-22 11:10 | ED.CHESTPAIN ---
HPI - Chest Pain General Chief Complaint: Chest Pain <Lisa Baker PA-C - Last Filed: 12/22/19 15:36> Stated Complaint: chest pain, sob <ARASELI Sadler Last Filed: 12/22/19 15:36> Time Seen by Provider: 12/22/19 10:41 <ARASELI Sadler Last Filed: 12/22/19 15:36> Source: patient <ARASELI Sadler Last Filed: 12/22/19 15:36> Mode of arrival: ambulatory <ARASELI Sadler Last Filed: 12/22/19 15:36> Limitations: no limitations <ARASELI Sadler Last Filed: 12/22/19 15:36> History of Present Illness HPI narrative: This is a 59-year-old female that presents to the ER for right sided chest pain since this morning. Reports pain around where her defibrillator is. Reports the pain is intermittent and sharp. Reports she has also been short of breath. Reports increasing swelling in her lower extremities that she has had trouble with for months. Reports 1 episode of vomiting this morning. Denies fever, abdominal pain, or cough. <Lisa Baker PA-C - Last Filed: 12/22/19 15:36> Related Data Home Medications: Home Medications Medication Instructions Recorded Confirmed aspirin 81 mg tablet,delayed 81 mg PO DAILY 06/20/19 12/22/19 release atorvastatin 40 mg tablet 40 mg PO DAILY 06/20/19 12/22/19 nitroglycerin 0.4 mg sublingual 0.4 mg SUBLINGUAL Q5M PRN 06/20/19 12/22/19 tablet clopidogrel [Plavix] 75 mg PO DAILY 09/24/19 12/22/19 budesonide-formoterol HFA 160 2 puff INHALATION Q12H PRN 10/02/19 12/22/19 mcg-4.5 mcg/actuation aerosol inhaler acetaminophen [Tylenol] 325 mg PO ONCE PRN 10/27/19 12/22/19 furosemide 40 mg PO BID 10/27/19 12/22/19 potassium chloride 10 mEq 20 meq PO DAILY cap 11/26/19 12/22/19 capsule,extended release montelukast 10 mg PO DAILY 12/22/19 12/22/19 <Lisa Baker PA-C - Last Filed: 12/22/19 15:36> Allergies/Adverse Reactions: Allergies Allergy/AdvReac Type Severity Reaction Status Date / Time valsartan Allergy Unknown Hypotension Verified 10/30/19 11:50 <Lisa Baker PA-C - Last Filed: 12/22/19 15:36> Review of Systems Review of Systems: Narrative: GENERAL: Well-appearing, well-nourished, and in no acute distress. HEAD: Normocephalic, atraumatic. EYES: PERRLA and EOMI. ENT: Nares clear, no rhinorrhea or epistaxis. Mucous membranes moist. Oropharynx without tonsillar hypertrophy exudate or other lesions. Bilateral TMs pearly rodriguez non-bulging NECK: Supple. No adenopathy or masses. CHEST: Clear to auscultation. No respiratory distress. No wheezes rales or rhonchi HEART: Regular rate and rhythm. No murmur heard. Normal peripheral pulses. ABDOMEN: Soft, nontender, nondistended, normal active bowel sounds. EXTREMITIES: Normal range of motion. No edema. Strength equal in bilateral upper and lower extremities (5/5). 1+ DP pulses SKIN: Warm, dry, no rash. NEURO: No focal deficits. Alert and oriented x3. Cranial nerves II through XII grossly intact PSYCH: Normal mood and affect <Lisa Baekr PA-C - Last Filed: 12/22/19 15:36> All systems reviewed & are unremarkable except as noted in HPI and below <Lisa Baker PA-C - Last Filed: 12/22/19 15:36> [facility] Past Medical History Medical History: Medical History (Updated 12/22/19 @ 18:54 by Ana Dwyer NP) Cerebrovascular accident No residual deficits. Chronic obstructive pulmonary disease Congestive heart failure Last echo seen in the system was noted on 04/21/2019 with the EF of 20 25% Coronary artery disease With history of myocardial infarction. Patient has several stents in place. Hyperlipidemia Hypertension Ischemic cardiomyopathy EF as low as 10 to 15% in September 2012. Status post defibrillator insertion. Lung nodule Left upper lobe opacity noted on imaging. Obstructive sleep apnea Untreated. Peripheral vascular disease With history of stents to the lower extremity. Right leg DVT Tobacco abuse <Lisa Smith
[2019-12-22 11:17] LABS: NT Pro B Type Natriuretic Pept 17100 PG/ML (5-100)
[2019-12-22] MEDS: IPRATROPIUM BR 0.02% INH SOLN 0.5 MG/2.5 ML VIAL INHALATION (11:25)
[2019-12-22] MEDS: ALBUTEROL SULFATE NEB 2.5 MG/0.5 ML INH 5 MG INHALATION (11:25)
[2019-12-22 11:29] LABS: Alveolar/Arterial O2 Gradient 16.9 mmHg; Base Excess ABG 1.3 mEq/l (+/-2.0); Carboxyhemoglobin 3.1 % THb (0-2.0); Fractional Inspired Oxygen 21 %; HCO3 ABG 25.7 mEq/l (22.0-26.0); Methemoglobin ABG 0.3 %THb (0-1.5); Oxygen Saturation ABG 96.6 % (95.0-100.0); Oxyhemoglobin 92.9 % THb (90.0-100.0); PCO2 ABG 39.9 mmHg (35.0-45.0); PO2 ABG 85.1 mmHg (80.0-100.0); PO2 FiO2 Ratio Arterial Blood 4.05 %; Reduced Hemoglobin 3.7 %THb (0-5.0); Total Hemoglobin 15.3 g/dL (12.0-18.0); pH ABG 7.426 (7.350-7.450)
[2019-12-22 11:30] LABS: Device ROOM AIR; Modified Allen's Test Pass; Site Drawn LEFT RADIAL
[2019-12-22 12:21] LABS: D Dimer 2.58 ug/mL (<0.48)
[2019-12-22 13:50] LABS: Troponin I 0.042 ng/mL (0.000-0.034)
[2019-12-22 14:36] LABS: Add Urine Microscopic? YES; Appearance Urine Clear (Clear); Bilirubin Urine Negative (Negative); Blood Urine Negative (Negative); Color Urine Straw (Yellow); Glucose Urine UA Negative (Negative); Ketones Urine Negative (Negative); Leukocyte Esterase Ur Negative LEU/UL (Negative); Mucus Urine Rare /lpf; Nitrate Urine Negative (Negative); Protein Urine 1+ mg/dL (Negative); RBC Urine 0-2 /hpf (0-2); Specific Grav Ur 1.028 (1.001-1.035); Squamous Epithelial Cell Urine Few /hpf (Few); Urobilinogen Urine Negative mg/dL (<2.0); WBC Urine 0-3 /hpf
[2019-12-22 16:32] LABS: Troponin I 0.045 ng/mL (0.000-0.034)
--- NOTE | 2019-12-22 17:08 | ADMGEN ---
This patient, Mar Martinez, was admitted to IMU Room 201-01 at 1645 on 12/22/2019. Patient/family oriented to hospital policies and general routines including ID bracelet, bed and alarms, visiting hours, pain management, procedures, bathroom and other care routines, personal items, smoking policy, room service/diet, and visiting hours. Valuables list has been completed. Information on how to activate the Rapid Response Team has been discussed. Patient/Family are encouraged to report perceived risks to care and to ask questions if they do not understand what they are told or what they should do.
--- NOTE | 2019-12-22 18:17 | PM.IMHP ---
H&P: HPI History of Present Illness Date/Time: 12/22/19 18:17 Chief complaint: PE, elevated troponin Narrative: Mar Martinez is a 59 year old female Who has a history of COPD and benign lung mass. The patient has had a history of DVT in the past but it was after is surgery. She has not had any PEs or DVTs since then. She has no history of any cancer are has been on any recent long travel. She has not been on any blood thinners. When she had a DVT in the past he was only on anticoagulation for brief period time. Patient had a bronch at a lung biopsy on 10/30/2019 and had been off of her aspirin and Plavix 6 days at that time. The patient has a history of having cardiac stents as well as peripheral stents. She has severe peripheral vascular disease and has some discoloration to her lower extremities. Patient still continues to smoke about 4 cigarettes a day. Patient also has ischemic cardiomyopathy with severe LV dysfunction. patient came in today because she was complaining of pain around her pacemaker site. She tells me that her pacemaker inserted in 2013. Patient stated that the pain on her right side of her chest was intermittent sharp. And that she had also been short of breath. She also has increased swelling to her lower extremities but this is been chronic for months. Patient did vomit 1 time this morning. Patient's sodium levels 130. BNP was [address]. Cardiomegaly on chest x-ray. Patient had a CT of the chest which was read as pulmonary embolism at the bifurcation of the left mainstream bronchus and extending in the couple of the basilar segmental pulmonary arteries of the left lower lobe. Dr. banerjee was called to see the patient was a candidate for thrombectomy. She is not a candidate for thrombectomy and recommends heparin. The patient was given a nebulizer treatment with some improvement in the shortness of breath. Dr. Chaudhry had been consulted. Heparin drip had been started. She also has a mild bump in her troponin. However she has chronically elevated troponin could be related to her congestive heart failure. her ICD was interrogated today as well and it was reported as normal.Date of service 12/12/2019 Review of Systems Review of Systems: All systems reviewed & are unremarkable except as noted in HPI and below Constitutional: Constitutional: Reports as per HPI and Reports no additional constitutional complaints Eyes: Eyes: Reports as per HPI and Reports no additional eye complaints ENT: Reports system reviewed and no additional complaints, except as documented and Reports Normal hearing present Cardiovascular: Cardiovascular: Reports no additional cardiovascular complaints Respiratory: Respiratory: Reports no additional respiratory complaints and Reports no additional respiratory complaints Gastrointestinal: Gastrointestinal: Reports as per HPI and Reports no additional gastrointestinal complaints Musculoskeletal: Musculoskeletal: Reports no additional musculoskeletal complaints Integumentary/Breasts: Skin/Breast: Reports system reviewed and no additional complaints, except as docu and Reports as per HPI Neurologic: Reports system reviewed and no additional complaints, except as documented, Reports as per HPI and Reports Normal hearing present Psychiatric: Psychiatric: Reports no additional psychiatric complaints and Reports as per HPI Endocrine: Endocrine: Reports no additional endocrine complaints Hematologic/Lymphatic: Hematologic/Lymphatic: Reports no additional hematologic/lymphatic complaints Allergic/Immunologic: Allergic/Immunologic: Reports no additional allergic/immunologic complaints [facility] Past Medical History Medical History (Updated 12/22/19 @ 18:54 by Ana Dwyer NP) Cerebrovascular accident No residual deficits. Chronic obstructive pulmonary disease Congestive heart failure Last echo seen in the system was noted on 04/21/2019 with the EF of 20 25% Coronary artery disease
[2019-12-22] MEDS: HEPARIN SOD/D5W 100 UNITS/ML 25,000 UNITS/250 ML BAG 12 UNITS IV CONT (18:29)
[2019-12-22] MEDS: carvediloL 6.25 MG TABLET PO (20:17)
[2019-12-22] MEDS: ACETAMINOPHEN 325 MG TABLET 650 MG PO (21:11)
--- NOTE | 2019-12-22 23:21 | PCRCNOTE ---
Window of time for administration has passed. See next scheduled administration.
[2019-12-23] VITALS (19 sets, daily range): BP systolic 102–130; BP diastolic 76–88; PULSE 61–81; RESP 16–20; TEMP 35.9–36.7; O2SAT 96–100
[2019-12-23 00:46] LABS: Partial Thromboplastin Time 98.1 SECONDS (22.3-36.8)
[2019-12-23 06:36] LABS: Basophils Percent Auto 0.4 % (0.2-1.2); Eosinophils Percent Auto 0.6 % (0-4.4); Hematocrit 43.3 % (37.0-47.0); Hemoglobin 14.5 g/dL (12.0-15.0); Immature Granulocyte Absolute 0.01 K/mm3 (0.00-0.031); Immature Granulocyte Percent A 0.2 % (0-0.5); Immature Platelet Fraction Pct 5.3 % (0.9-11.2); Lymphocytes Absolute Auto 2.65 K/mm3 (0.9-3.2); Lymphocytes Percent Auto 51.6 % (18.3-44.2); Mean Corpuscular HGB Conc 33.5 g/dl (32-36); Mean Corpuscular Hemoglobin 31.7 pg (26-34); Mean Corpuscular Volume 94.5 fl (80-100); Mean Platelet Volume 11.3 fl (7.4-10.4); Monocytes Absolute Auto 0.4 K/mm3 (0.1-0.6); Neutrophils Absolute Auto 2.1 K/mm3 (1.3-6.7); Neutrophils Percent Auto 40.2 % (45.5-73.1); Platelet Count Result 138 k/mm3 (150-375); Red Blood Count 4.58 M/mm3 (4.2-5.4); Red Cell Distribution Width 16.2 % (11.5-14.5); White Blood Count 5.1 K/mm3 (4.5-10.0)
[2019-12-23 07:01] LABS: Partial Thromboplastin Time 130.5 SECONDS (22.3-36.8)
[2019-12-23] MEDS: MONTELUKAST SODIUM 10 MG TABLET PO (08:54)
[2019-12-23] MEDS: FUROSEMIDE 20 MG TABLET 40 MG PO ×2 (08:54→18:09)
[2019-12-23] MEDS: ASPIRIN 81 MG ENTERIC TABLET PO (08:54)
[2019-12-23] MEDS: carvediloL 6.25 MG TABLET PO ×2 (08:55→20:21)
[2019-12-23] MEDS: ATORVASTATIN 40 MG TABLET PO (08:55)
[2019-12-23] MEDS: EUCERIN CREAM 120 GM JAR 1 APPLIC TOPICAL (08:56)
[2019-12-23] MEDS: ALBUTEROL SULFATE NEB 2.5 MG/0.5 ML INH INHALATION ×2 (09:00→13:37)
[2019-12-23 09:06] LABS: Alanine Aminotransferase 37 U/L (4-35); Albumin Level 3.5 g/dL (3.5-5.1); Alkaline Phosphatase 135 U/L (38-126); Anion Gap 6 mmol/L (8-16); Aspartate Amino Transferase 52 U/L (14-36); Bilirubin,Total 1.6 mg/dL (0.2-1.3); Blood Urea Nitrogen 17 mg/dL (7-17); Carbon Dioxide 26 mmol/L (22-30); Chloride 97 mmol/L (98-107); Estimated CRCL calculation 85 ml/min; Estimated Glomerular Filt Rate > 60; Glucose 85 mg/dL (65-105); Sodium 129 mmol/L (137-145)
--- NOTE | 2019-12-23 09:07 | PM.CNCAR ---
Assessment and Plan Assessment and plan (1) Pulmonary embolism: Qualifiers: Pulmonary embolism type: multiple subsegmental (without acute cor pulmonale) Qualified Code(s): I26.94 - Multiple subsegmental pulmonary emboli without acute cor pulmonale Code(s): I26.99 - Other pulmonary embolism without acute cor pulmonale Status: Acute Assessment and Plan: 59-year-old female with multiple medical problems-coronary disease with history of PCI/stenting, severe ischemic cardiomyopathy status post Biotronik single-chamber ICD implanted on 05/23/2013; peripheral artery disease, COPD, history of DVT, tobacco abuse. Patient admitted with worsening shortness of breath and right-sided chest discomfort, found to have pulmonary embolism. Patient currently hemodynamically stable and saturating well. Patient currently on unfractionated heparin. Monitor APTT. Consider switching to 1 of the direct oral anticoagulants for chronic anticoagulation. Since patient will be on chronic anticoagulation at discharge, would recommend single antiplatelet treatment with either aspirin or clopidogrel to decrease bleeding complications. Venous Dopplers are pending. (2) Congestive heart failure: Qualifiers: Heart failure chronicity: chronic Heart failure type: unspecified Qualified Code(s): I50.9 - Heart failure, unspecified Code(s): I50.9 - Heart failure, unspecified Status: Chronic Assessment and Plan: Patient has been resume on carvedilol. Patient apparently has some intolerance to valsartan as documented in the notes. May consider low-dose ACEI as an outpatient. (3) Ischemic cardiomyopathy: Code(s): I25.5 - Ischemic cardiomyopathy Status: Acute (4) ICD (implantable cardioverter-defibrillator) in place: Code(s): Z95.810 - Presence of automatic (implantable) cardiac defibrillator Status: Acute Assessment and Plan: Management as above; ICD was interrogated, no recent therapies, appropriate device function (5) Tobacco abuse: Code(s): Z72.0 - Tobacco use Status: Acute Assessment and Plan: Smoking cessation counseling was done History of Present Illness History of Present Illness Consult date/time: 12/23/19 09:07 Date of consult: 12/23/2019 Reason for consult: Chest pain, CHF, elevated troponin Requesting physician:Lisa Baker NP Chief complaint: Chest pain, shortness of breath HPI: 59-year-old female with multiple medical problems-coronary disease with history of PCI/stenting, severe ischemic cardiomyopathy status post Biotronik single-chamber ICD implanted on 05/23/2013; peripheral artery disease, COPD, history of DVT, tobacco abuse. Patient was admitted to [facility] on 12/22/2019 with complaints of chest discomfort and worsening shortness of breath. Patient has baseline NYHA functional class 3 symptoms. For last couple of days, she started getting more short of breath associated with chest discomfort in the right upper chest close to her ICD site. She had associated with dizziness; no palpitations or syncope. No ICD shocks. Chest x-ray reported enlarged cardiac silhouette, cardiomegaly and/or effusion; linear left midlung zone atelectasis; moderate hyperinflation. D-dimer was elevated. CT scan of the chest showed left-sided pulmonary embolism at the bifurcation of the left mainstem bronchus and extending into couple of the basilar segmental pulmonary arteries of the left lower lobe; Marked cardiomegaly with mild pulmonary edema; small pericardial effusion. She has been initiated on heparin for pulmonary embolism. EKG on my personal evaluation showed sinus rhythm, first-degree AV block, rightward axis, biatrial enlargement, intraventricular conduction delay, poor R-wave progression. Troponins [place] [id number]. ICD interrogation showed appropriate device function without recent therapies. Reas
--- NOTE | 2019-12-23 13:17 | PM.IMPN ---
Progress Note: A&P Assessment and Plan (1) Pulmonary embolism: Qualifiers: Pulmonary embolism type: multiple subsegmental (without acute cor pulmonale) Qualified Code(s): I26.94 - Multiple subsegmental pulmonary emboli without acute cor pulmonale Code(s): I26.99 - Other pulmonary embolism without acute cor pulmonale Status: Acute Assessment and Plan: The patient has had a DVT in the past. CXR relatively clear. DD positive. CTA showing left-sided PE at the bifurcation of the left mainstem bronchus and extending into couple of the basilar segmental pulmonary arteries of the left lower lobe. LE venous Dopplers negative. Patient has been started on heparin drip. She is on room air. Chest pain resolved. Change to Eliquis when okay with others (2) Acute hyperkalemia: Code(s): E87.5 - Hyperkalemia Status: Acute Assessment and Plan: Potassium 5.2 on admission but better today at 5.0. Her potassium supplement on hold for now. Will need close monitoring if she is on Spironolactone and/or ARGELIA/ARb. Cortisol level okay. (3) Congestive heart failure: Qualifiers: Heart failure chronicity: chronic Heart failure type: unspecified Qualified Code(s): I50.9 - Heart failure, unspecified Code(s): I50.9 - Heart failure, unspecified Status: Chronic Assessment and Plan: Appears to be euvolemic and CXR not consistent with fluid overload but BNP 17K. Patient had a recent Echo at the [facility]. Patient has a history of ischemic CMP with last known EF around 25%. She does have a defibrillator in place. Cardilogy consulted. Continue medical management. (4) Hyponatremia: Code(s): E87.1 - Hypo-osmolality and hyponatremia Status: Acute Assessment and Plan: Appears to be chronic by chart review. Probably related to her diuretics and congestive heart failure. Na 129 today ans still within her baseline. Continue to follow. (5) Ischemic cardiomyopathy: Code(s): I25.5 - Ischemic cardiomyopathy Status: Acute Assessment and Plan: Runs of NSVT noted by tele. Patient has ICD and was interrogated. No shocks. Cardiology following. Continue Coreg. Correct electrolyte abnormalities (6) COPD with asthma: Code(s): J44.9 - Chronic obstructive pulmonary disease, unspecified Status: Acute Assessment and Plan: Stable. No wheezing. Continue with patient's inhalers and her Singulair. (7) Lung nodule: Code(s): R91.1 - Solitary pulmonary nodule Status: Acute Assessment and Plan: The patient had a bronch per pulmonology on October 31, 2019 with negative pathology. Will need to continue to be monitored. (8) Sleep apnea: Qualifiers: Sleep apnea type: unspecified type Qualified Code(s): G47.30 - Sleep apnea, unspecified Code(s): G47.30 - Sleep apnea, unspecified Status: Chronic Assessment and Plan: Patient's sleep study was inconclusive and will need to follow-up with a new sleep study as the sleep labs open up. Will check Apnea link to see if she needs O2 at night. (9) Elevated troponin: Code(s): R79.89 - Other specified abnormal findings of blood chemistry Status: Acute Assessment and Plan: Troponin mildly elevated at 0.05 and relatively flat. Probaly cardiac strain from the PE. Unlikely to be related to ACS. (10) Hyperlipidemia: Code(s): E78.5 - Hyperlipidemia, unspecified Status: Chronic Assessment and Plan: AST 53 and ALT 37 on admission but seems more chronic. Continue with Lipitor (11) Tobacco abuse: Code(s): Z72.0 - Tobacco use Status: Acute Assessment and Plan: patient was educated about the benefits of smoking cessation. Subjective Date/time seen: 12/23/19 13:17 Interval history: Date of service 12/22 59yo female with chronic systolic CH
[2019-12-23 13:49] LABS: Partial Thromboplastin Time 105.9 SECONDS (22.3-36.8)
[2019-12-23] MEDS: HEPARIN SOD/D5W 100 UNITS/ML 25,000 UNITS/250 ML BAG 10 UNITS IV CONT (18:07)
[2019-12-23 19:44] LABS: Partial Thromboplastin Time 47.3 SECONDS (22.3-36.8)
[2019-12-23] MEDS: ACETAMINOPHEN 325 MG TABLET 650 MG PO (20:20)
[2019-12-23] MEDS: ALBUTEROL SULFATE (*SP) AEROSOL 1 PUFF 2 PUFF INHALATION (20:33)
[2019-12-23] MEDS: HEPARIN SODIUM 5,000 UNITS/ML VIAL 5500 UNITS IV PUSH (21:46)
[2019-12-24] VITALS (17 sets, daily range): BP systolic 106–137; BP diastolic 63–90; PULSE 63–75; RESP 16–20; TEMP 36.1–36.6; O2SAT 93–99
[2019-12-24 04:53] LABS: Basophils Percent Auto 0.5 % (0.2-1.2); Eosinophils Percent Auto 0.5 % (0-4.4); Hematocrit 45.7 % (37.0-47.0); Hemoglobin 14.8 g/dL (12.0-15.0); Immature Granulocyte Absolute 0.02 K/mm3 (0.00-0.031); Immature Granulocyte Percent A 0.4 % (0-0.5); Immature Platelet Fraction Pct 6.3 % (0.9-11.2); Lymphocytes Absolute Auto 2.67 K/mm3 (0.9-3.2); Lymphocytes Percent Auto 48.6 % (18.3-44.2); Mean Corpuscular HGB Conc 32.4 g/dl (32-36); Mean Corpuscular Hemoglobin 31.2 pg (26-34); Mean Corpuscular Volume 96.2 fl (80-100); Mean Platelet Volume 11.1 fl (7.4-10.4); Monocytes Absolute Auto 0.3 K/mm3 (0.1-0.6); Neutrophils Absolute Auto 2.4 K/mm3 (1.3-6.7); Nucleated Red Blood Cells Perc 0.5 % (0.0-0.2); Platelet Count Result 132 k/mm3 (150-375); Red Blood Count 4.75 M/mm3 (4.2-5.4); Red Cell Distribution Width 16.5 % (11.5-14.5); White Blood Count 5.5 K/mm3 (4.5-10.0)
[2019-12-24 05:09] LABS: Albumin Level 3.8 g/dL (3.5-5.1); Anion Gap 7 mmol/L (8-16); Blood Urea Nitrogen 16 mg/dL (7-17); Calcium 8.4 mg/dL (8.4-10.2); Carbon Dioxide 28 mmol/L (22-30); Chloride 94 mmol/L (98-107); Estimated CRCL calculation 85 ml/min; Estimated Glomerular Filt Rate > 60; Glucose 97 mg/dL (65-105); Magnesium 1.6 mg/dL (1.6-2.3); Phosphorus 3.5 mg/dL (2.5-4.5); Potassium 4.7 mmol/L (3.4-5.0); Sodium 129 mmol/L (137-145)
[2019-12-24 07:19] LABS: Partial Thromboplastin Time > 200.0 SECONDS (22.3-36.8)
[2019-12-24] MEDS: carvediloL 6.25 MG TABLET PO ×2 (08:30→20:36)
[2019-12-24] MEDS: ATORVASTATIN 40 MG TABLET PO (08:30)
[2019-12-24] MEDS: MAGNESIUM SULF 2 GM/WATER 50ML 2 GM/50 ML BAG IVPB (08:30)
[2019-12-24] MEDS: FUROSEMIDE 20 MG TABLET 40 MG PO (08:30)
[2019-12-24] MEDS: ASPIRIN 81 MG ENTERIC TABLET PO (08:30)
[2019-12-24] MEDS: MONTELUKAST SODIUM 10 MG TABLET PO (08:30)
[2019-12-24] MEDS: EUCERIN CREAM 120 GM JAR 1 APPLIC TOPICAL (08:35)
--- NOTE | 2019-12-24 13:57 | PM.IMPN ---
Progress Note: A&P Assessment and Plan (1) Pulmonary embolism: Qualifiers: Pulmonary embolism type: multiple subsegmental (without acute cor pulmonale) Qualified Code(s): I26.94 - Multiple subsegmental pulmonary emboli without acute cor pulmonale Code(s): I26.99 - Other pulmonary embolism without acute cor pulmonale Status: Acute Assessment and Plan: The patient has had a DVT in the past. CXR relatively clear. DD positive. CTA showing left-sided PE at the bifurcation of the left mainstem bronchus and extending into couple of the basilar segmental pulmonary arteries of the left lower lobe. LE venous Dopplers negative. Patient was started on heparin drip. She is on room air. Chest pain resolved. Change to Eliquis today. Stop Plavix. Continue ASA. Plt count noted. (2) Acute hyperkalemia: Code(s): E87.5 - Hyperkalemia Status: Acute Assessment and Plan: Potassium 5.2 on admission but better today at 4.7. Her potassium supplement on hold for now. Will need close monitoring if she is on Spironolactone and/or ARGELIA/ARB. Cortisol level okay. (3) Congestive heart failure: Qualifiers: Heart failure chronicity: chronic Heart failure type: unspecified Qualified Code(s): I50.9 - Heart failure, unspecified Code(s): I50.9 - Heart failure, unspecified Status: Chronic Assessment and Plan: Appears to be euvolemic and CXR not consistent with fluid overload but BNP 17K and having orthopneic symptoms. Patient had a recent Echo at the [facility] [employer] office. Patient has a history of ischemic CMP with last known EF around 25%. She does have a defibrillator in place. Cardiology following. Continue medical management. Lasix IV x 1. (4) Hyponatremia: Code(s): E87.1 - Hypo-osmolality and hyponatremia Status: Acute Assessment and Plan: Appears to be chronic by chart review. Probably related to her diuretics and congestive heart failure. Na 129 today and stable. Continue to follow. (5) Ischemic cardiomyopathy: Code(s): I25.5 - Ischemic cardiomyopathy Status: Acute Assessment and Plan: Runs of NSVT noted by tele: cardiology made aware. Patient has ICD and was interrogated. No shocks. Cardiology following. Continue Coreg. Correct electrolyte abnormalities. Mag given. (6) COPD with asthma: Code(s): J44.9 - Chronic obstructive pulmonary disease, unspecified Status: Acute Assessment and Plan: Stable. No wheezing. Continue with patient's inhalers and her Singulair. (7) Lung nodule: Code(s): R91.1 - Solitary pulmonary nodule Status: Acute Assessment and Plan: The patient had a bronch per pulmonology on October 31, 2019 with negative pathology. Will need to continue to be monitored. (8) Sleep apnea: Qualifiers: Sleep apnea type: unspecified type Qualified Code(s): G47.30 - Sleep apnea, unspecified Code(s): G47.30 - Sleep apnea, unspecified Status: Chronic Assessment and Plan: Patient's sleep study was inconclusive and will need to follow-up with a new sleep study as the sleep labs open up. Could explain her dyspnea at night. Will check Apnea link to see if she needs O2 at night. (9) Elevated troponin: Code(s): R79.89 - Other specified abnormal findings of blood chemistry Status: Acute Assessment and Plan: Troponin mildly elevated at 0.05 and relatively flat. Probaly cardiac strain from the PE. Unlikely to be related to ACS. (10) Hyperlipidemia: Code(s): E78.5 - Hyperlipidemia, unspecified Status: Chronic Assessment and Plan: AST 53 and ALT 37 on admission but seems more chronic. Continue with Lipitor (11) Tobacco abuse: Code(s): Z72.0 - Tobacco use Status: Acute Assessment and Plan: patient was educated about the benefits of smoking cessation
[2019-12-24] MEDS: FUROSEMIDE INJ 40 MG/4 ML VIAL IV PUSH (14:53)
[2019-12-24 15:16] LABS: Partial Thromboplastin Time 168.6 SECONDS (22.3-36.8)
--- NOTE | 2019-12-24 16:39 | PM.PNCARD ---
Progress Note: A&P Assessment and Plan (1) Pulmonary embolism: Qualifiers: Pulmonary embolism type: multiple subsegmental (without acute cor pulmonale) Qualified Code(s): I26.94 - Multiple subsegmental pulmonary emboli without acute cor pulmonale Code(s): I26.99 - Other pulmonary embolism without acute cor pulmonale Status: Acute Assessment and Plan: Admitted with worsening shortness of breath and right-sided chest discomfort, found to have pulmonary embolism. Hemodynamically stable and saturating well on room air. Transitioning to Eliquis per Dr. Hernandez. Since she will be on chronic anticoagulation at discharge, recommend single antiplatelet treatment with either aspirin or clopidogrel to decrease bleeding complications. Clopidogrel has been discontinued by Dr Hernandez Venous Dopplers are negative (2) Congestive heart failure: Qualifiers: Heart failure chronicity: chronic Heart failure type: unspecified Qualified Code(s): I50.9 - Heart failure, unspecified Code(s): I50.9 - Heart failure, unspecified Status: Chronic Assessment and Plan: Continue carvedilol. She apparently has some intolerance to valsartan as documented in the notes. May consider low-dose ACEI as an outpatient. (3) Ischemic cardiomyopathy: Code(s): I25.5 - Ischemic cardiomyopathy Status: Acute (4) ICD (implantable cardioverter-defibrillator) in place: Code(s): Z95.810 - Presence of automatic (implantable) cardiac defibrillator Status: Acute Assessment and Plan: Management as above; ICD was interrogated 12/22/2019. No recent therapies, appropriate device function. (5) Tobacco abuse: Code(s): Z72.0 - Tobacco use Status: Acute Assessment and Plan: Smoking cessation counseling was done Additional Plan No further cardiac recommendations. May transfer to medicine. Will leave decision regarding telemetry up to Plan discussed with Dr Denis [id number] 12/24/2019 Subjective Date/time seen: 12/24/19 16:39 Interval history: Follow-up for: Chronic systolic heart failure, pulmonary embolus, ischemic cardiomyopathy, ICD Date of service: 12/24/2019 Subjective: Slept poorly due to hip pain, denied chest pain, short of breath with exertional activity, slight lightheadedness which is improving Review of Systems Constitutional: Constitutional: Reports fatigue Eyes: Eyes: Denies blurry vision ENT: Reports Normal hearing present Cardiovascular: Cardiovascular: Denies chest pain, Reports leg edema (Left worse than right) and Denies palpitations Respiratory: Respiratory: Reports dyspnea on exertion and Denies wheezing Gastrointestinal: Gastrointestinal: Denies abdominal pain, Denies nausea and Denies vomiting Genitourinary: Genitourinary: Denies hematuria Musculoskeletal: Musculoskeletal: Reports arthralgias (Hip pain) Integumentary/Breasts: Skin/Breast: Denies erythema and Denies rash Neurologic: Denies headache(s) and Denies numbness Psychiatric: Psychiatric: Denies anxiety Exam Narrative: Exam Narrative: PHYSICAL EXAMINATION: GENERAL: Alert, oriented, no acute distress; pinkish face MENTAL STATUS: affect appropriate to mood EYES: Extraocular movements intact, no pallor EARS: External ears appear normal, hearing grossly normal NOSE: Normal and patent, no discharge MOUTH: Mucous membranes moist, tongue normal NECK: Supple CHEST: Good respiratory effort, scattered crackles at base bilaterally HEART: Normal rate, regular rhythm, normal S1 and S2, systolic murmur left sternal border ABDOMEN: Soft, nontender NEUROLOGICAL: Alert, oriented, normal speech, no gross motor deficits MUSCULOSKELETAL: No major deformity EXTREMITIES: no clubbing, no cyanosis; right subclavian ICD site well healed. No redness. Left lower ex
[2019-12-24] MEDS: APIXABAN 5 MG TABLET 10 MG PO (20:37)
[2019-12-25] VITALS: PULSE 59
[2019-12-25 05:29] VITALS: BP 112/76; PULSE 78; RESP 18; TEMP 36.7; O2SAT 99
[2019-12-25 06:51] LABS: Hemoglobin 13.9 g/dL (12.0-15.0); Mean Corpuscular HGB Conc 33.1 g/dl (32-36); Mean Corpuscular Hemoglobin 31.1 pg (26-34); Mean Platelet Volume 10.8 fl (7.4-10.4); Platelet Count Result 147 k/mm3 (150-375); Red Blood Count 4.47 M/mm3 (4.2-5.4); Red Cell Distribution Width 16.5 % (11.5-14.5); White Blood Count 4.7 K/mm3 (4.5-10.0)
[2019-12-25 07:06] LABS: Anion Gap 3 mmol/L (8-16); Blood Urea Nitrogen 11 mg/dL (7-17); Calcium 8.6 mg/dL (8.4-10.2); Carbon Dioxide 32 mmol/L (22-30); Chloride 96 mmol/L (98-107); Estimated CRCL calculation 101 ml/min; Estimated Glomerular Filt Rate > 60; Glucose 91 mg/dL (65-105); Magnesium 1.8 mg/dL (1.6-2.3); Potassium 3.7 mmol/L (3.4-5.0); Sodium 131 mmol/L (137-145)
[2019-12-25 07:58] VITALS: BP 126/79; PULSE 70; RESP 16; TEMP 35.7; O2SAT 100
--- NOTE | 2019-12-25 08:18 | PC.NURSE ---
This patient, Mar Martinez, was transferred to [facility] on 12/25/19 at 0818. Personal belongings sent with patient. Report given to TERRELL Knott. Appropriate documentation sent with patient.
--- NOTE | 2019-12-25 08:30 | PC.NURSE ---
Received from [facility] / via wheelchair.
[2019-12-25 09:09] VITALS: PULSE 68
[2019-12-25] MEDS: ATORVASTATIN 40 MG TABLET PO (09:09)
[2019-12-25] MEDS: carvediloL 6.25 MG TABLET PO (09:09)
[2019-12-25] MEDS: MONTELUKAST SODIUM 10 MG TABLET PO (09:09)
[2019-12-25] MEDS: ASPIRIN 81 MG ENTERIC TABLET PO (09:09)
[2019-12-25] MEDS: FUROSEMIDE 20 MG TABLET 40 MG PO ×2 (09:12→16:07)
[2019-12-25] MEDS: APIXABAN 5 MG TABLET 10 MG PO (09:12)
[2019-12-25 09:14] VITALS: PULSE 68; RESP 16; O2SAT 98
[2019-12-25] MEDS: EUCERIN CREAM 120 GM JAR 1 APPLIC TOPICAL (09:14)
--- NOTE | 2019-12-25 11:50 | PM.DS ---
DS: Admitting Diagnosis Admitting Diagnosis Admitting Diagnosis: PE, elevated troponin DS: Discharge Diagnosis Discharge Diagnosis (1) Pulmonary embolism: Qualifiers: Pulmonary embolism type: multiple subsegmental (without acute cor pulmonale) Qualified Code(s): I26.94 - Multiple subsegmental pulmonary emboli without acute cor pulmonale Code(s): I26.99 - Other pulmonary embolism without acute cor pulmonale Status: Acute Assessment and Plan: The patient has had a DVT in the past. CXR relatively clear. DD positive. CTA showing left-sided PE at the bifurcation of the left mainstem bronchus and extending into couple of the basilar segmental pulmonary arteries of the left lower lobe. LE venous Dopplers negative. Patient was started on heparin drip. She is on room air. Chest pain resolved. Changed to Eliquis. Stopped Plavix per cardiology. Continue ASA. (2) Acute hyperkalemia: Code(s): E87.5 - Hyperkalemia Status: Acute Assessment and Plan: Potassium 5.2 on admission but better today at 3.7. Her potassium supplement on hold here. Cortisol level okay. Resume K+ and repeat BMP. (3) Congestive heart failure: Qualifiers: Heart failure chronicity: chronic Heart failure type: unspecified Qualified Code(s): I50.9 - Heart failure, unspecified Code(s): I50.9 - Heart failure, unspecified Status: Chronic Assessment and Plan: Appears to be euvolemic and CXR not consistent with fluid overload but BNP 17K and having orthopneic symptoms. Patient had a recent Echo at the [employer] [employer] [facility] office. Patient has a history of ischemic CMP with last known EF around 25%. She does have a defibrillator in place. Nocturnal symptoms could be related to the untreated sleep apnea. Cardiology following. Continue medical management. (4) Hyponatremia: Code(s): E87.1 - Hypo-osmolality and hyponatremia Status: Acute Assessment and Plan: Appears to be chronic by chart review. Probably related to her diuretics and congestive heart failure. Na 131 today and stable. (5) Ischemic cardiomyopathy: Code(s): I25.5 - Ischemic cardiomyopathy Status: Acute Assessment and Plan: Runs of NSVT noted by tele: cardiology made aware. Patient has ICD and was interrogated. No shocks. Cardiology following. We continued Coreg. We corrected electrolyte abnormalities. (6) COPD with asthma: Code(s): J44.9 - Chronic obstructive pulmonary disease, unspecified Status: Acute Assessment and Plan: Stable. No wheezing. Continue with patient's inhalers and her Singulair. (7) Lung nodule: Code(s): R91.1 - Solitary pulmonary nodule Status: Acute Assessment and Plan: The patient had a bronch per pulmonology on October 31, 2019 with negative pathology. Will need to continue to be monitored. (8) Sleep apnea: Qualifiers: Sleep apnea type: unspecified type Qualified Code(s): G47.30 - Sleep apnea, unspecified Code(s): G47.30 - Sleep apnea, unspecified Status: Chronic Assessment and Plan: Patient's sleep study was inconclusive and will need to follow-up with a new sleep study as the sleep labs open up. Could explain her dyspnea at night. We checked Apnea link and this was positive. She could not get O2 at night but able to get CPAP autotitrate at home hat will be monitored by [facility]. with inteval evaluations until patient can get the Sleep study. (9) Elevated troponin: Code(s): R79.89 - Other specified abnormal findings of blood chemistry Status: Acute Assessment and Plan: Troponin mildly elevated at 0.05 and relatively flat. Probaly cardiac strain from the PE. Unlikely to be related to ACS. (10) Hyperlipidemia: Code(s): E78.5 - Hyperlipidemia, unspecified Status: Chronic Assessment and Plan: AST 53
[2019-12-25 14:00] VITALS: BP 147/81; PULSE 66; RESP 16; TEMP 35.9; O2SAT 98
== END 2019-12-25 18:20 | disposition home or self-care (01) | DRG 176 ==
LOC: ANHED 10:53 → ANHIMU 15:36 → ANH3MED 12-25 08:19
PROVIDERS: Family Medicine; Nurse Practitioner; Physician Assistant; Admitting Provider Family Medicine; Emergency Provider General Practice; PCP Internal Medicine; Visit Provider Internal Medicine
DX: I26.94 Multiple subsegmental thrombotic pulmonary emboli without acute cor pulmonale (principal); E87.1 Hypo-osmolality and hyponatremia; I50.22 Chronic systolic (congestive) heart failure; Z23 Encounter for immunization; E87.5 Hyperkalemia; I25.5 Ischemic cardiomyopathy; J44.9 Chronic obstructive pulmonary disease, unspecified; R91.1 Solitary pulmonary nodule; R79.89 Other specified abnormal findings of blood chemistry; E78.5 Hyperlipidemia, unspecified; I25.10 Atherosclerotic heart disease of native coronary artery without angina pectoris; G47.33 Obstructive sleep apnea (adult) (pediatric); I73.9 Peripheral vascular disease, unspecified; F17.210 Nicotine dependence, cigarettes, uncomplicated; I25.2 Old myocardial infarction; Z86.73 Personal history of transient ischemic attack (TIA), and cerebral infarction without residual deficits; Z95.5 Presence of coronary angioplasty implant and graft; Z95.1 Presence of aortocoronary bypass graft; Z95.810 Presence of automatic (implantable) cardiac defibrillator; Z95.820 Peripheral vascular angioplasty status with implants and grafts; Z86.718 Personal history of other venous thrombosis and embolism
CPT/HCPCS: 36415; 36600; 71046; 71275; 80048; 80053; 80069; 80076; 81001; 82375; 82533; 82805; 83050; 83690; 83735; 83880; 84484; 85025; 85027; 85055; 85380; 85610; 85730; 90471; 90686; 93005; 93970; 94640; 94762; 96365; 96366; 99285; A9270; G0008; G0378; J1644; J1940; J3475; Q9967

== ENCOUNTER 2020-01-20 09:37 | Outpatient (CLI) | payer MEDICARE, MEDICAID, SELFPAY ==
[2020-01-20 11:14] LABS: Anion Gap 9 mmol/L (8-16); Blood Urea Nitrogen 14 mg/dL (7-17); Calcium 9.5 mg/dL (8.4-10.2); Carbon Dioxide 36 mmol/L (22-30); Chloride 86 mmol/L (98-107); Estimated Glomerular Filt Rate > 60; Glucose 88 mg/dL (65-105); Potassium 3.5 mmol/L (3.4-5.0); Sodium 131 mmol/L (137-145)
== END 2020-01-20 09:38 | disposition home or self-care (01) ==
LOC: ANHLAB 09:39
PROVIDERS: PCP Internal Medicine; Visit Provider Nurse Practitioner Adult Health
DX: I25.5 Ischemic cardiomyopathy (principal)
CPT/HCPCS: 36415; 80048

== ENCOUNTER 2020-02-18 12:54 | Outpatient (CLI) | payer MEDICARE, MEDICAID, SELFPAY ==
[2020-02-18 13:48] LABS: Anion Gap 7.99999 mmol/L (8-16); Blood Urea Nitrogen 15 mg/dL (7-17); Calcium 9.1 mg/dL (8.4-10.2); Carbon Dioxide > 40 mmol/L (22-30); Chloride 82 mmol/L (98-107); Estimated Glomerular Filt Rate > 60; Glucose 110 mg/dL (65-105); Potassium 2.7 mmol/L (3.4-5.0); Sodium 130 mmol/L (137-145)
== END 2020-02-18 12:55 | disposition home or self-care (01) ==
LOC: ANHLAB 12:56
PROVIDERS: PCP Internal Medicine; Visit Provider Nurse Practitioner Adult Health
DX: I25.5 Ischemic cardiomyopathy (principal)
CPT/HCPCS: 36415; 80048

== ENCOUNTER 2020-02-18 15:01 | Emergency (ER) | payer MEDICARE, MEDICAID, SELFPAY ==
[2020-02-18] VITALS (35 sets, daily range): BP systolic 117–132; BP diastolic 71–86; PULSE 66–138; RESP 13–28; TEMP 36.6–36.8; O2SAT 84–100
[2020-02-18 16:09] LABS: Basophils Percent Auto 0.4 % (0.2-1.2); Eosinophils Percent Auto 0.8 % (0-4.4); Hematocrit 51.8 % (37.0-47.0); Hemoglobin 17.2 g/dL (12.0-15.0); Lymphocytes Absolute Auto 1.87 K/mm3 (0.9-3.2); Lymphocytes Percent Auto 37.4 % (18.3-44.2); Mean Corpuscular HGB Conc 33.2 g/dl (32-36); Mean Corpuscular Hemoglobin 31.4 pg (26-34); Mean Corpuscular Volume 94.5 fl (80-100); Mean Platelet Volume 9.6 fl (7.4-10.4); Monocytes Absolute Auto 0.5 K/mm3 (0.1-0.6); Monocytes Percent Auto 9.6 % (2.6-8.5); Neutrophils Absolute Auto 2.6 K/mm3 (1.3-6.7); Neutrophils Percent Auto 51.8 % (45.5-73.1); Platelet Count Result 215 k/mm3 (150-375); Red Blood Count 5.48 M/mm3 (4.2-5.4); Red Cell Distribution Width 15.5 % (11.5-14.5)
--- NOTE | 2020-02-18 16:10 | PC.NURSE ---
patient here in ED room 10 with abnormal labs. sent here by her physician with low K+ on labs earlier today. patient does have ICD. states that her device did shock her on Sunday. PCP and insulator technician following labs closely. denies any symptoms today. alert. oriented. ambulatory. placed on sales administrator. SL inserted. labs drawn. patient's in room. call light in reach.
--- NOTE | 2020-02-18 17:01 | ED.GENADULT ---
HPI - General Adult General Chief complaint: Unspecified Stated complaint: LOW POTASSIUM LEVEL Time Seen by Provider: 02/18/20 16:07 Source: patient Mode of arrival: ambulatory Limitations: no limitations History of Present Illness HPI narrative: Patient states that she was sent here by her doctor due to low potassium levels. Patient admits to feeling weak and paresthesia of her fingers bilaterally. Denies any headache, dizziness, chest pain, shortness of breath, abdominal pain, nausea vomiting diarrhea or fever. Patient states that her defibrillator went off a few days ago and it shocked her. Related Data Home Medications Medication Instructions Recorded Confirmed aspirin 81 mg tablet,delayed 81 mg PO DAILY 06/20/19 12/22/19 release atorvastatin 40 mg tablet 40 mg PO DAILY 06/20/19 12/22/19 nitroglycerin 0.4 mg sublingual 0.4 mg SUBLINGUAL Q5M PRN 06/20/19 12/22/19 tablet budesonide-formoterol HFA 160 2 puff INHALATION Q12H PRN 10/02/19 12/22/19 mcg-4.5 mcg/actuation aerosol inhaler furosemide 40 mg PO BID 10/27/19 12/22/19 montelukast 10 mg PO DAILY 12/22/19 12/22/19 Allergies Allergy/AdvReac Type Severity Reaction Status Date / Time valsartan Allergy Unknown Hypotension Verified 01/09/20 10:32 Review of Systems Review of Systems: All systems reviewed & are unremarkable except as noted in HPI and below Constitutional: Constitutional: Denies body ache(s), Denies chills, Denies excessive sweating, Denies fatigue, Denies fever(s), Denies headache(s), Denies lethargy, Denies malaise and Denies weight loss Eyes: Eyes: Denies blurry vision, Denies change in vision and Denies loss of vision ENT: Denies dizziness, Denies ear discharge, Denies headache(s), Denies lip swelling, Denies epistaxis, Denies nasal congestion, Denies neck pain, Denies throat swelling and Denies tongue swelling Cardiovascular: Cardiovascular: Denies chest pain, Denies chest pain at rest, Denies chest pain with activity, Denies diaphoresis, Denies rapid heart rate, Denies edema, Denies irregular heart rhythm, Denies lightheadedness, Denies palpitations, Denies dyspnea and Denies dyspnea on exertion Respiratory: Respiratory: Denies chest congestion, Denies cough, Denies hemoptysis, Denies dyspnea and Denies dyspnea on exertion Gastrointestinal: Gastrointestinal: Denies abdominal pain, Denies melena, Denies hematochezia, Denies diarrhea, Denies nausea, Denies vomiting and Denies hematemesis Musculoskeletal: Musculoskeletal: Denies abnormal gait, Denies deformity, Denies joint swelling, Denies limited range of motion, Denies neck pain and Denies numbness Neurologic: Denies Abnormal speech present, Denies abnormal gait, Denies confusion, Denies dizziness, Denies headache(s), Denies focal weakness, Denies loss of vision, Denies numbness, Denies Other visual disturbances and Denies Sensory deficit (Neuro) Psychiatric: Psychiatric: Denies confusion, Denies depression, Denies auditory hallucinations, Denies homicidal ideation and Denies suicidal ideation Endocrine: Endocrine: Denies cold intolerance, Denies excessive sweating, Denies fatigue, Denies heat intolerance and Denies palpitations Hematologic/Lymphatic: Hematologic/Lymphatic: Denies easy bleeding and Denies easy bruising Allergic/Immunologic: Allergic/Immunologic: Denies lip swelling, Denies throat swelling and Denies tongue swelling [facility], [facility] Past Medical History Medical History (Updated 02/18/20 @ 22:49 by Shad Murphy MD) Cerebrovascular accident No residual deficits. Chronic obstructive pulmonary disease Congestive heart failure Last echo seen in the system was noted on 04/21/2019 with the EF of 20 25% Coronary artery disease With history of myocardial infarction. Patient has several stents in place. Hyperlipidemia Hypertension Ischemic cardiomyopathy EF as low as 10 to 15% in September 2012. Status post defibrillator insertion. Lung nodule Left upper lobe opacity noted on i
[2020-02-18 17:47] LABS: INR 1.3
[2020-02-18 17:48] LABS: Partial Thromboplastin Time 30.2 SECONDS (22.3-36.8)
--- NOTE | 2020-02-18 18:26 | PC.NURSE ---
CMP resulted after redrawn. K+ 3.2. order for KCL and ASA received. both given to patient. had ambulated to restroom. now back in room. placed back on monitor. denies needs. understands current treatment plan and recheck of trop.
[2020-02-18 18:33] LABS: Alanine Aminotransferase 34 U/L (4-35); Albumin Level 3.7 g/dL (3.5-5.1); Alkaline Phosphatase 115 U/L (38-126); Anion Gap 5.99999 mmol/L (8-16); Aspartate Amino Transferase 55 U/L (14-36); Blood Urea Nitrogen 16 mg/dL (7-17); Calcium 9.1 mg/dL (8.4-10.2); Carbon Dioxide > 40 mmol/L (22-30); Chloride 85 mmol/L (98-107); Estimated CRCL calculation 101 ml/min; Estimated Glomerular Filt Rate > 60; Glucose 99 mg/dL (65-105); NT Pro B Type Natriuretic Pept 6220 PG/ML (5-100); Potassium 3.2 mmol/L (3.4-5.0); Sodium 131 mmol/L (137-145); Troponin I 0.095 ng/mL (0.000-0.034)
[2020-02-18] MEDS: POTASSIUM CHLORIDE 20 MEQ PACKET (FOR LIQUID) 40 MEQ PO (18:40)
[2020-02-18] MEDS: ASPIRIN 81 MG CHEWABLE TABLET 324 MG PO (18:50)
--- NOTE | 2020-02-18 18:50 | PC.NURSE ---
received call from lab. patient with elevated trop. has order for 3 hour recheck. patient updated. denies needs. lab requested that green top and blue top be redrawn.
[2020-02-18 19:37] LABS: Troponin I 0.107 ng/mL (0.000-0.034)
--- NOTE | 2020-02-18 19:45 | PC.NURSE ---
resting on stretcher. periodically unhooks herself from quality assurance monitor final to ambulate around her room or ambulate to restroom. denies dizziness. has steady gait.
[2020-02-18 22:08] LABS: Troponin I 0.111 ng/mL (0.000-0.034)
--- NOTE | 2020-02-18 22:47 | ECG_ITS ---
Measurements Intervals [place] Rate: 80 P: 32 RI: 205 QRS: 197 QRSD: 133 T: 55 QT: 425 QTc: 491 Interpretive Statements SINUS RHYTHM RIGHT AXIS DEVIATION BORDERLINE AV CONDUCTION DELAY LEFT ATRIAL ENLARGEMENT INTRAVENTRICULAR CONDUCTION DELAY DELAYED PRECORDIAL R/S TRANSITION BORDERLINE ECG Electronically Signed On 02-19-2020 8:09:39 CREDIT OFFICER by Miguel A Alvarado D.O.
--- NOTE | 2020-02-18 22:59 | PC.NURSE ---
repeat EKG done. given to provider. waiting for further orders from provider vs disposition.
== END 2020-02-18 23:22 | disposition home or self-care (01) ==
PROVIDERS: Emergency Provider Emergency Medicine; PCP Internal Medicine
DX: E87.6 Hypokalemia (principal); R77.8 Other specified abnormalities of plasma proteins; I11.0 Hypertensive heart disease with heart failure; I50.9 Heart failure, unspecified; J44.9 Chronic obstructive pulmonary disease, unspecified; I25.10 Atherosclerotic heart disease of native coronary artery without angina pectoris; G47.30 Sleep apnea, unspecified
CPT/HCPCS: 36415; 80048; 80053; 83880; 84484; 85025; 85610; 85730; 93005; 99284; A9270

== ENCOUNTER 2020-03-12 11:33 | Outpatient (CLI) | payer MEDICARE, MEDICAID, SELFPAY ==
[2020-03-12 12:05] LABS: Anion Gap 6 mmol/L (8-16); Blood Urea Nitrogen 14 mg/dL (7-17); Calcium 8.4 mg/dL (8.4-10.2); Carbon Dioxide 32 mmol/L (22-30); Chloride 92 mmol/L (98-107); Estimated Glomerular Filt Rate > 60; Glucose 101 mg/dL (65-105); Potassium 3.4 mmol/L (3.4-5.0); Sodium 130 mmol/L (137-145)
== END 2020-03-12 11:34 | disposition home or self-care (01) ==
LOC: ANHLAB 11:36
PROVIDERS: PCP Internal Medicine; Visit Provider Nurse Practitioner Adult Health
DX: E87.6 Hypokalemia (principal)
CPT/HCPCS: 36415; 80048

== ENCOUNTER 2020-04-26 08:07 | Outpatient (CLI) | payer MEDICARE, MEDICAID, SELFPAY ==
[2020-04-26 08:48] LABS: Anion Gap 2 mmol/L (8-16); Blood Urea Nitrogen 18 mg/dL (7-17); Calcium 10.2 mg/dL (8.4-10.2); Carbon Dioxide 34 mmol/L (22-30); Chloride 87 mmol/L (98-107); Estimated Glomerular Filt Rate > 60; Glucose 98 mg/dL (65-105); Potassium 4.7 mmol/L (3.4-5.0); Sodium 123 mmol/L (137-145)
== END 2020-04-26 08:08 | disposition home or self-care (01) ==
PROVIDERS: PCP Internal Medicine; Visit Provider Internal Medicine
DX: I25.5 Ischemic cardiomyopathy (principal)
CPT/HCPCS: 36415; 80048